=== PATIENT | male | born 1970 | race Two or more races ===

== ENCOUNTER 2021-12-08 13:06 | Emergency (ER) | payer OTHER ==
[~2021-12-08] VITALS: Ht 167.6 cm; Wt 127.0 kg
[2021-12-08] MEDS ORDERED: LORazepam 2MG/ML-1ML VIAL ONE (13:29)
[2021-12-08] MEDS ORDERED: LORazepam 2MG/ML-1ML VIAL IV ONE (13:29)
[2021-12-08 15:09] LABS: Basophils # (auto) 0 10 ^3/uL (0-0.2); Basophils % (auto) 0.2 % (0.0-2.0); Eosinophils # (auto) 0.1 10 ^3/uL (0-0.8); Eosinophils % (auto) 1.4 % (0.0-7.0); Hematocrit 37.1 % (41.0-53.0); Hemoglobin 12.3 g/dL (13.5-17.5); Lymphocytes # (auto) 2.1 10 ^3/uL (0.4-5.4); Lymphocytes % (auto) 22.6 % (10.0-50.0); Mean Corpuscular Hemoglobin 32.1 pg (28.0-32.0); Mean Corpuscular Hgb Conc. 33.2 g/dL (32.0-36.0); Mean Corpuscular Volume 96.8 fL (80.0-100.0); Monocytes # (auto) 0.6 10 ^3/uL (0-1.3); Monocytes % (auto) 6.6 % (0.0-12.0); Neutrophils # (auto) 6.5 10 ^3/uL (1.6-8.6); Neutrophils % (auto) 69.2 % (37.0-80.0); Nucleated Red Blood Cells % 0.1 %; Red Blood Cells 3.83 10^6/uL (4.5-5.90); Red Cell Distribution Width 14.6 % (11.8-14.3); White Blood Cell 9.4 10^3/uL (4.4-10.8)
[2021-12-08 15:20] LABS: Alanine Aminotransferase 25 U/L (16-61); Albumin 3.3 g/dL (3.4-5.0); Anion Gap 10 (5-15); Aspartate Aminotransferase 23 U/L (15-37); BUN/Creatinine Ratio 13.3; Blood Urea Nitrogen 16 mg/dL (7-18); Calcium 8.7 mg/dL (8.5-10.1); Carbon Dioxide 16 mmol/L (21-32); Chloride 115 mmol/L (98-107); GFR African American 82 mL/min; GFR Non-African American 68 mL/min; Glucose 96 mg/dL (74-106); Potassium 3.7 mmol/L (3.5-5.1); Sodium 141 mmol/L (136-145)
[2021-12-08 15:23] LABS: Alkaline Phosphatase 96 U/L (45-117); Bilirubin, Total 0.5 mg/dL (0.2-1.0); Total Protein 7.1 g/dL (6.4-8.2)
[2021-12-08] MEDS ORDERED: HYDROcodone-ACET 5/325MG TAB PO ONE (16:00)
[2021-12-08 17:45] VITALS: BP 131/79
[2021-12-08] MEDS ORDERED: LEVE500T32 PO (17:46)
== END 2021-12-08 17:58 | disposition home or self-care (01) ==
LOC: ER 13:06 → EDSEX 13:06 → ER 17:58
DX: R56.9 Unspecified convulsions (principal); I50.9 Heart failure, unspecified; I25.2 Old myocardial infarction; Z88.6 Allergy status to analgesic agent; Z88.8 Allergy status to other drugs, medicaments and biological substances
CPT/HCPCS: 36415; 70450; 71045; 72125; 80053; 85025; 93005; 96365; 96366; 96375; 99285; J1953; J2060; J7060

== ENCOUNTER 2021-12-08 23:43 | Inpatient (IN) | payer OTHER ==
[~2021-12-08] VITALS: Ht 167.6 cm; Wt 103.4 kg
[~2021-12-08 23:43] MED LIST: LEVE500T32 PO
[2021-12-09] MEDS: LORazepam 2MG/ML-1ML VIAL IV PRN ×4 (02:38→21:57)
[2021-12-09] MEDS ORDERED: HEPARIN SODIUM (PORCINE) 5000 UNITS/ML 1ML VIAL IV ONE (03:00)
[2021-12-09] MEDS ORDERED: ONDANSETRON HCL 4 MG/2 ML VIAL IV PRN (03:00)
[2021-12-09 03:40] LABS: Basophils # (auto) 0.1 10 ^3/uL (0-0.2); Basophils % (auto) 1.2 % (0.0-2.0); Eosinophils # (auto) 0.2 10 ^3/uL (0-0.8); Eosinophils % (auto) 3.2 % (0.0-7.0); Hematocrit 33.6 % (41.0-53.0); Hemoglobin 11.5 g/dL (13.5-17.5); Lymphocytes # (auto) 2.1 10 ^3/uL (0.4-5.4); Lymphocytes % (auto) 28.8 % (10.0-50.0); Mean Corpuscular Hemoglobin 32.4 pg (28.0-32.0); Mean Corpuscular Hgb Conc. 34.3 g/dL (32.0-36.0); Mean Corpuscular Volume 94.5 fL (80.0-100.0); Monocytes # (auto) 0.5 10 ^3/uL (0-1.3); Monocytes % (auto) 6.6 % (0.0-12.0); Neutrophils # (auto) 4.4 10 ^3/uL (1.6-8.6); Neutrophils % (auto) 60.2 % (37.0-80.0); Nucleated Red Blood Cells % 0.1 %; Red Blood Cells 3.55 10^6/uL (4.5-5.90); Red Cell Distribution Width 14.8 % (11.8-14.3); White Blood Cell 7.2 10^3/uL (4.4-10.8)
[2021-12-09 03:53] LABS: Albumin 3.2 g/dL (3.4-5.0); BUN/Creatinine Ratio 13.9; Calcium 8.6 mg/dL (8.5-10.1); Potassium 3.4 mmol/L (3.5-5.1)
[2021-12-09 03:56] LABS: Bilirubin, Total 0.4 mg/dL (0.2-1.0); Total Protein 6.7 g/dL (6.4-8.2)
[2021-12-09] MEDS ORDERED: levETIRAcetam 500 MG/5ML INJ IV ONE (03:57)
[2021-12-09 05:45] VITALS: BP 129/80
[2021-12-09 08:40] VITALS: BP 116/80
[2021-12-09 13:00] VITALS: BP 150/90
[2021-12-09 17:00] VITALS: BP 138/93
[2021-12-09] MEDS: buPROPion HCL 75 MG TAB PO SCH (18:31)
[2021-12-09 22:00] VITALS: BP 138/88
[2021-12-09] MEDS ORDERED: SODIUM CHLOR 0.9% PF (SALINE LOCK) 10ML VIAL/SYR IV ONE (23:45)
[2021-12-10] MEDS: LORazepam 2MG/ML-1ML VIAL IV PRN ×3 (00:28→13:27)
[2021-12-10 05:00] VITALS: BP 129/88
[2021-12-10] MEDS: buPROPion HCL 75 MG TAB PO SCH ×2 (06:14→18:28)
[2021-12-10 08:00] VITALS: BP 132/81
[2021-12-10 08:38] VITALS: BP 132/81
[2021-12-10 12:30] VITALS: BP 137/82
[2021-12-10] MEDS: HYDROcodone-ACET 5/325MG TAB PO PRN (14:24)
[2021-12-10 17:08] VITALS: BP 118/74
[2021-12-10] MEDS ORDERED: KETOROLAC TROMETH 30 MG/ML 1ML VIAL IV ONE (18:00)
[2021-12-11] MEDS: LORazepam 2MG/ML-1ML VIAL IV PRN ×6 (00:23→22:06)
[2021-12-11] MEDS: buPROPion HCL 75 MG TAB PO SCH ×2 (06:13→18:28)
[2021-12-11 09:00] VITALS: BP 129/83
[2021-12-11 13:00] VITALS: BP 131/94
[2021-12-11 17:00] VITALS: BP 129/88
[2021-12-11 22:00] VITALS: BP 132/95
[2021-12-11] MEDS ORDERED: HALOPERIDOL LACTATE 5 MG/ML INJ VIAL IM PRN (22:45)
[2021-12-12] MEDS: LORazepam 2MG/ML-1ML VIAL IV PRN (00:56)
[2021-12-12] MEDS: HYDROcodone-ACET 5/325MG TAB PO PRN (02:32)
[2021-12-12 05:00] VITALS: BP 152/100
[2021-12-12] MEDS: buPROPion HCL 75 MG TAB PO SCH ×2 (07:03→18:44)
[2021-12-12] MEDS ORDERED: diphenhdrAMINE HCL 25 MG CAP PO ONE (23:30)
== END 2021-12-12 23:20 | disposition left against medical advice (07) | DRG 101 ==
LOC: ER 23:43 → TELE 12-09 03:05 → TELE-EAST 12-09 05:10
PROVIDERS: ADMIT Internal Medicine; ATTEND Family Medicine
DX: G40.401 Other generalized epilepsy and epileptic syndromes, not intractable, with status epilepticus (principal); F09 Unspecified mental disorder due to known physiological condition; F43.10 Post-traumatic stress disorder, unspecified; G25.81 Restless legs syndrome; F32.A Depression, unspecified; Z53.21 Procedure and treatment not carried out due to patient leaving prior to being seen by health care provider; Z20.822 Contact with and (suspected) exposure to COVID-19; Z79.899 Other long term (current) drug therapy; Z87.820 Personal history of traumatic brain injury; Z98.2 Presence of cerebrospinal fluid drainage device; Z88.5 Allergy status to narcotic agent; Z88.8 Allergy status to other drugs, medicaments and biological substances; Z91.013 Allergy to seafood
CPT/HCPCS: 36415; 80053; 85025; 87081; 95819; 96365; 96375; G0378; J1885; J7060

== ENCOUNTER 2021-12-13 00:29 | Emergency (ER) | payer OTHER ==
[~2021-12-13] VITALS: Ht 167.6 cm; Wt 81.6 kg
[2021-12-13 01:00] VITALS: BP 151/98
[2021-12-13] MEDS ORDERED: levETIRAcetam 500 MG/5ML INJ IV ONE (01:31)
[2021-12-15] MEDS ORDERED: AMLO-496 PO ×2 (10:05→11:17)
[2021-12-15] MEDS ORDERED: LEVE500T32 PO (11:17)
[2021-12-15] MEDS ORDERED: KEP500T PO ×2 (12:14→12:41)
== END 2021-12-13 02:54 | disposition home or self-care (01) ==
LOC: ER 00:31
DX: G40.909 Epilepsy, unspecified, not intractable, without status epilepticus (principal); R41.82 Altered mental status, unspecified
CPT/HCPCS: 96365; 99284; J1953; J7030; J7060

== ENCOUNTER 2021-12-13 15:51 | Inpatient (IN) | payer OTHER ==
[~2021-12-13] VITALS: Ht 167.6 cm; Wt 103.4 kg
[2021-12-13] MEDS ORDERED: SODIUM CHLORIDE 0.9% 1,000 ML IV ONE ×2 (16:00)
[2021-12-13 16:22] LABS: Basophils # (auto) 0 10 ^3/uL (0-0.2); Basophils % (auto) 0.4 % (0.0-2.0); Eosinophils # (auto) 0.1 10 ^3/uL (0-0.8); Eosinophils % (auto) 1.2 % (0.0-7.0); Hematocrit 34.6 % (41.0-53.0); Hemoglobin 11.6 g/dL (13.5-17.5); Lymphocytes # (auto) 2.1 10 ^3/uL (0.4-5.4); Lymphocytes % (auto) 27.1 % (10.0-50.0); Mean Corpuscular Hemoglobin 32.1 pg (28.0-32.0); Mean Corpuscular Hgb Conc. 33.5 g/dL (32.0-36.0); Monocytes # (auto) 0.6 10 ^3/uL (0-1.3); Monocytes % (auto) 8.5 % (0.0-12.0); Neutrophils # (auto) 4.8 10 ^3/uL (1.6-8.6); Neutrophils % (auto) 62.8 % (37.0-80.0); Nucleated Red Blood Cells % 0.1 %; Red Blood Cells 3.61 10^6/uL (4.5-5.90); Red Cell Distribution Width 14.6 % (11.8-14.3); White Blood Cell 7.6 10^3/uL (4.4-10.8)
[2021-12-13 16:40] LABS: Albumin 3.5 g/dL (3.4-5.0); Anion Gap 8 (5-15); Blood Urea Nitrogen 16 mg/dL (7-18); Calcium 8.7 mg/dL (8.5-10.1); Carbon Dioxide 21 mmol/L (21-32); Chloride 114 mmol/L (98-107); Glucose 91 mg/dL (74-106); Sodium 143 mmol/L (136-145)
[2021-12-13 16:42] LABS: Alanine Aminotransferase 26 U/L (16-61); Aspartate Aminotransferase 22 U/L (15-37); BUN/Creatinine Ratio 13.7; GFR African American 85 mL/min; GFR Non-African American 70 mL/min
[2021-12-13 16:44] LABS: Alkaline Phosphatase 91 U/L (45-117); Bilirubin, Total 0.7 mg/dL (0.2-1.0); Total Protein 7.3 g/dL (6.4-8.2)
[2021-12-13] MEDS ORDERED: LORazepam 2MG/ML-1ML VIAL IV ONE (18:00)
[2021-12-13] MEDS ORDERED: LORazepam 2MG/ML-1ML VIAL IV PRN (18:15)
[2021-12-13] MEDS ORDERED: NITROGLYCERIN 0.4 MG SL TAB SL PRN (18:15)
[2021-12-13 18:46] LABS: Urine Bacteria NONE SEEN /hpf (None Seen); Urine Blood Negative /uL (Negative); Urine Hyaline Cast FEW /lpf (0 - 2); Urine Mucus FEW (None Seen); Urine WBC 4 /hpf (0 - 3)
[2021-12-13] MEDS ORDERED: DOCUSATE SOD 100 MG CAP PO PRN (19:30)
[2021-12-13] MEDS ORDERED: SODIUM CHLORIDE 0.9% 1,000 ML IV SCH (19:30)
[2021-12-13] MEDS ORDERED: LACTULOSE 20Gm/30ML SOLN PO PRN (19:30)
[2021-12-13] MEDS ORDERED: HYDROcodone-ACET 5/325MG TAB PO PRN (19:30)
[2021-12-13] MEDS ORDERED: FAMOTIDINE (10MG/ML) 2ML VL IV ONE (19:30)
[2021-12-13] MEDS ORDERED: HYDROcodone-ACET 5/325MG TAB PO ONE (19:30)
[2021-12-13] MEDS ORDERED: MORPHINE SULFATE INJECTION 2 MG/ML SYRG IV PRN (19:30)
[2021-12-13] MEDS ORDERED: IPRATROPIUM BROM 0.5 MG/2.5ML INH SOL ONE (19:30)
[2021-12-13] MEDS ORDERED: IPRATROPIUM BROM 0.5 MG/2.5ML INH SOL NEB ONE (19:30)
[2021-12-13] MEDS ORDERED: ONDANSETRON HCL 4 MG/2 ML VIAL IV PRN (19:30)
[2021-12-13] MEDS ORDERED: ACETAMINOPHEN 325 MG TAB PO PRN (19:30)
[2021-12-13] MEDS ORDERED: hydrALAZINE HCL 20 MG/ML VL IV PRN (19:30)
[2021-12-13 20:08] LABS: Magnesium 1.9 mg/dL (1.6-2.6); Phosphorus 1.8 mg/dL (2.5-4.90)
[2021-12-13 20:21] LABS: INR 1.09 (0.9-1.15); Partial Thromboplastin Time 27.3 sec (23.6-33.0)
[2021-12-13 21:00] VITALS: BP 132/108
[2021-12-13] MEDS: SODIUM CHLORIDE 0.9% 1,000 ML IV SCH (21:00)
[2021-12-13] MEDS ORDERED: ATORVASTATIN 20 MG TAB PO SCH (22:00)
[2021-12-13] MEDS: IPRATROPIUM BROM 0.5 MG/2.5ML INH SOL NEB SCH (22:56)
[2021-12-14] MEDS: IPRATROPIUM BROM 0.5 MG/2.5ML INH SOL NEB SCH (02:26)
[2021-12-14] MEDS: MORPHINE SULFATE INJECTION 2 MG/ML SYRG IV PRN ×2 (04:11→20:34)
[2021-12-14 05:35] LABS: Basophils # (auto) 0 10 ^3/uL (0-0.2); Basophils % (auto) 0.5 % (0.0-2.0); Eosinophils # (auto) 0.1 10 ^3/uL (0-0.8); Eosinophils % (auto) 1.9 % (0.0-7.0); Hematocrit 33.8 % (41.0-53.0); Hemoglobin 11.7 g/dL (13.5-17.5); Lymphocytes # (auto) 1.7 10 ^3/uL (0.4-5.4); Lymphocytes % (auto) 23.4 % (10.0-50.0); Mean Corpuscular Hemoglobin 32.6 pg (28.0-32.0); Mean Corpuscular Hgb Conc. 34.7 g/dL (32.0-36.0); Mean Corpuscular Volume 93.9 fL (80.0-100.0); Monocytes # (auto) 0.6 10 ^3/uL (0-1.3); Monocytes % (auto) 8.2 % (0.0-12.0); Neutrophils # (auto) 4.8 10 ^3/uL (1.6-8.6); Red Cell Distribution Width 14.7 % (11.8-14.3); White Blood Cell 7.3 10^3/uL (4.4-10.8)
[2021-12-14] MEDS ORDERED: IPRATROPIUM BROM 0.5 MG/2.5ML INH SOL NEB PRN (05:45)
[2021-12-14 05:47] LABS: Albumin 3.3 g/dL (3.4-5.0); Calcium 8.8 mg/dL (8.5-10.1); Magnesium 1.9 mg/dL (1.6-2.6); Potassium 3.3 mmol/L (3.5-5.1); Uric Acid 6.9 mg/dL (3.5-7.2)
[2021-12-14 05:48] LABS: INR 1.14 (0.9-1.15)
[2021-12-14 05:51] LABS: Bilirubin, Total 0.8 mg/dL (0.2-1.0); CRP High Sensitivity 0.93 mg/dL (< 0.3); Phosphorus 2.6 mg/dL (2.5-4.90); Total Protein 6.9 g/dL (6.4-8.2)
[2021-12-14 05:54] LABS: Prolactin 35.63 ng/mL (2.8-29.2)
[2021-12-14] MEDS: HALOPERIDOL LACTATE 5 MG/ML INJ VIAL IM PRN ×2 (05:54→20:27)
[2021-12-14 05:58] LABS: Alcohol, Urine < 3.0 mg/dL (0-10); Amphetamine Screen, Urine NEGATIVE (NEGATIVE); Barbiturate Scree,Urine NEGATIVE (NEGATIVE); Benzodiazephine Screen, Urine NEGATIVE (NEGATIVE); Cannabinoid Screen, Urine NEGATIVE (NEGATIVE); Cocaine Screen, Urine NEGATIVE (NEGATIVE); Opiate Scree,Urine NEGATIVE (NEGATIVE); Phencyclidine Screen, Urine NEGATIVE (NEGATIVE); Protein, Urine 25.5 mg/dL (0.0-11.9)
[2021-12-14 06:03] LABS: Urine Bacteria NONE SEEN /hpf (None Seen); Urine Blood Negative /uL (Negative); Urine Mucus FEW (None Seen); Urine Specific Gravity 1.026 (1.001-1.035); Urine WBC 2 /hpf (0 - 3)
[2021-12-14 06:30] LABS: BUN/Creatinine Ratio 13.1
[2021-12-14] MEDS ORDERED: buPROPion HCL 75 MG TAB PO SCH (07:00)
[2021-12-14 09:32] VITALS: BP 140/90
[2021-12-14 13:23] VITALS: BP 141/95
[2021-12-14] MEDS: FAMOTIDINE (10MG/ML) 2ML VL IV SCH (13:30)
[2021-12-14] MEDS: ASPirin 81 mg TAB PO SCH (13:30)
[2021-12-14] MEDS: ENOXAPARIN SOD 40 MG/0.4 ML SYRINGE SC SCH (13:30)
[2021-12-14] MEDS ORDERED: POTASSIUM CHL 20 Meq TABLET PO ONE ×2 (14:30→19:00)
[2021-12-14] MEDS: SODIUM CHLORIDE 0.9% 1,000 ML IV SCH (15:30)
[2021-12-14 16:30] VITALS: BP 145/94
[2021-12-14 22:00] VITALS: BP 134/91
[2021-12-15 05:00] VITALS: BP 131/90
[2021-12-15 06:38] LABS: Magnesium 2.5 mg/dL (1.6-2.6); Potassium 3.4 mmol/L (3.5-5.1)
[2021-12-15 08:06] VITALS: BP 150/91
[2021-12-15] MEDS: ENOXAPARIN SOD 40 MG/0.4 ML SYRINGE SC SCH (10:00)
[2021-12-15] MEDS: FAMOTIDINE (10MG/ML) 2ML VL IV SCH (10:00)
[2021-12-15] MEDS: ASPirin 81 mg TAB PO SCH (10:00)
[2021-12-15] MEDS ORDERED: buPROPion HCL 75 MG TAB PO SCH (10:00)
[2021-12-15] MEDS ORDERED: PROP20TA73 PO (10:05)
[2021-12-15] MEDS ORDERED: AMLO-496 PO ×2 (10:05→11:17)
[2021-12-15] MEDS ORDERED: DICY20TA PO (10:27)
[2021-12-15] MEDS ORDERED: ROPI1TAB4 PO (10:27)
[2021-12-15] MEDS ORDERED: POTASSIUM CHL 20 Meq TABLET PO ONE (11:15)
[2021-12-15] MEDS ORDERED: LEVE500T32 PO (11:17)
[2021-12-15 12:10] VITALS: BP 144/85
[2021-12-15] MEDS ORDERED: KEP500T PO ×2 (12:14→12:41)
[2021-12-15 12:31] VITALS: BP 132/70
== END 2021-12-15 13:54 | disposition left against medical advice (07) | DRG 100 ==
LOC: ER 15:51 → TELE 18:06 → TELE-CENTR 12-14 08:43
PROVIDERS: ADMIT Hospitalist; ATTEND Internal Medicine
DX: G40.401 Other generalized epilepsy and epileptic syndromes, not intractable, with status epilepticus (principal); N18.6 End stage renal disease; I12.0 Hypertensive chronic kidney disease with stage 5 chronic kidney disease or end stage renal disease; E87.6 Hypokalemia; E78.5 Hyperlipidemia, unspecified; E66.01 Morbid (severe) obesity due to excess calories; E11.22 Type 2 diabetes mellitus with diabetic chronic kidney disease; F32.9 Major depressive disorder, single episode, unspecified; F09 Unspecified mental disorder due to known physiological condition; F43.10 Post-traumatic stress disorder, unspecified; Z20.822 Contact with and (suspected) exposure to COVID-19; G20 Parkinson's disease; G25.81 Restless legs syndrome; I48.91 Unspecified atrial fibrillation; F32.A Depression, unspecified; Z98.2 Presence of cerebrospinal fluid drainage device; Z91.19 Patient's noncompliance with other medical treatment and regimen; Z82.49 Family history of ischemic heart disease and other diseases of the circulatory system; Z79.899 Other long term (current) drug therapy; Z88.8 Allergy status to other drugs, medicaments and biological substances; Z91.013 Allergy to seafood; Z53.29 Procedure and treatment not carried out because of patient's decision for other reasons
CPT/HCPCS: 36415; 70450; 71045; 80053; 80061; 80307; 81001; 82542; 82550; 82728; 83036; 83615; 83690; 83735; 83880; 84100; 84132; 84146; 84156; 84443; 84484; 84550; 85025; 85379; 85610; 85652; 85730; 86141; 87040; 87086; 93005; 94640; 96361; 96365; G0378; J3490; J7060

== ENCOUNTER 2021-12-18 01:57 | Emergency (ER) | payer OTHER ==
[~2021-12-18] VITALS: Ht 167.6 cm; Wt 81.6 kg
[~2021-12-18 01:57] MED LIST changes: +AMLO-496 PO; +DICY20TA PO; +KEP500T PO; -LEVE500T32 PO; +PROP20TA73 PO; +ROPI1TAB4 PO
[2021-12-18] MEDS ORDERED: LORazepam 2MG/ML-1ML VIAL ONE (02:46)
[2021-12-18 02:58] LABS: Basophils # (auto) 0.1 10 ^3/uL (0-0.2); Eosinophils # (auto) 0.1 10 ^3/uL (0-0.8); Hematocrit 33.5 % (41.0-53.0); Hemoglobin 11.3 g/dL (13.5-17.5); Lymphocytes # (auto) 1.7 10 ^3/uL (0.4-5.4); Lymphocytes % (auto) 20.3 % (10.0-50.0); Mean Corpuscular Hgb Conc. 33.8 g/dL (32.0-36.0); Mean Corpuscular Volume 94.5 fL (80.0-100.0); Monocytes # (auto) 0.6 10 ^3/uL (0-1.3); Monocytes % (auto) 7.6 % (0.0-12.0); Neutrophils # (auto) 5.7 10 ^3/uL (1.6-8.6); Neutrophils % (auto) 70.1 % (37.0-80.0); Red Blood Cells 3.54 10^6/uL (4.5-5.90); Red Cell Distribution Width 14.7 % (11.8-14.3); White Blood Cell 8.2 10^3/uL (4.4-10.8)
[2021-12-18] MEDS ORDERED: LORazepam 2MG/ML-1ML VIAL IV ONE (03:00)
[2021-12-18 03:22] LABS: Albumin 3.5 g/dL (3.4-5.0); BUN/Creatinine Ratio 6.9; Calcium 9.1 mg/dL (8.5-10.1)
[2021-12-18 03:25] LABS: Bilirubin, Total 0.4 mg/dL (0.2-1.0); Total Protein 7.1 g/dL (6.4-8.2)
[2021-12-18 03:28] LABS: Potassium 2.9 mmol/L (3.5-5.1)
[2021-12-18] MEDS ORDERED: POTASSIUM CHL 20 Meq TABLET PO ONE (04:45)
[2021-12-18 10:23] LABS: Urine Bacteria NONE SEEN /hpf (None Seen); Urine Blood Negative /uL (Negative); Urine Budding Yeast MODERATE /hpf (None Seen); Urine Hyaline Cast MOD /lpf (0 - 2); Urine Mucus FEW (None Seen); Urine Specific Gravity 1.015 (1.001-1.035); Urine WBC 3 /hpf (0 - 3)
[2021-12-18 16:16] VITALS: BP 135/84
== END 2021-12-18 16:51 | disposition home or self-care (01) ==
LOC: ER 01:57
DX: G40.909 Epilepsy, unspecified, not intractable, without status epilepticus (principal); R41.82 Altered mental status, unspecified; E87.6 Hypokalemia; E11.21 Type 2 diabetes mellitus with diabetic nephropathy; E11.22 Type 2 diabetes mellitus with diabetic chronic kidney disease; I12.0 Hypertensive chronic kidney disease with stage 5 chronic kidney disease or end stage renal disease; N18.6 End stage renal disease
CPT/HCPCS: 36415; 70450; 80053; 81001; 85025; 93005; 96365; 96375; 99285; J1953; J2060; J7060

== ENCOUNTER 2022-02-07 16:03 | Inpatient (IN) | payer OTHER ==
[~2022-02-07] VITALS: Ht 167.6 cm; Wt 98.0 kg
[2022-02-07 20:02] LABS: Basophils # (auto) 0 10 ^3/uL (0-0.2); Basophils % (auto) 0.5 % (0.0-2.0); Eosinophils # (auto) 0.1 10 ^3/uL (0-0.8); Eosinophils % (auto) 1.2 % (0.0-7.0); Hematocrit 37.9 % (41.0-53.0); Hemoglobin 13.1 g/dL (13.5-17.5); Lymphocytes # (auto) 1.5 10 ^3/uL (0.4-5.4); Lymphocytes % (auto) 23.7 % (10.0-50.0); Mean Corpuscular Hemoglobin 32.8 pg (28.0-32.0); Mean Corpuscular Hgb Conc. 34.5 g/dL (32.0-36.0); Mean Corpuscular Volume 95.2 fL (80.0-100.0); Monocytes # (auto) 1.1 10 ^3/uL (0-1.3); Monocytes % (auto) 17.4 % (0.0-12.0); Neutrophils # (auto) 3.5 10 ^3/uL (1.6-8.6); Neutrophils % (auto) 57.2 % (37.0-80.0); Nucleated Red Blood Cells % 0.1 %; Red Blood Cells 3.98 10^6/uL (4.5-5.90); Red Cell Distribution Width 13.4 % (11.8-14.3); White Blood Cell 6.2 10^3/uL (4.4-10.8)
[2022-02-07 20:07] LABS: Urine Bacteria NONE SEEN /hpf (None Seen); Urine Blood Negative /uL (Negative); Urine Specific Gravity 1.009 (1.001-1.035); Urine WBC <1 /hpf (0 - 3)
[2022-02-07 20:22] LABS: Albumin 3.1 g/dL (3.4-5.0); Calcium 8.4 mg/dL (8.5-10.1); Potassium 3.7 mmol/L (3.5-5.1)
[2022-02-07 20:23] LABS: Alcohol, Urine < 3.0 mg/dL (0-10); Amphetamine Screen, Urine NEGATIVE (NEGATIVE); Barbiturate Scree,Urine NEGATIVE (NEGATIVE); Benzodiazephine Screen, Urine NEGATIVE (NEGATIVE); Cannabinoid Screen, Urine NEGATIVE (NEGATIVE); Cocaine Screen, Urine NEGATIVE (NEGATIVE); Opiate Scree,Urine NEGATIVE (NEGATIVE); Phencyclidine Screen, Urine NEGATIVE (NEGATIVE)
[2022-02-07 20:26] LABS: BUN/Creatinine Ratio 9.5; Bilirubin, Total 0.4 mg/dL (0.2-1.0); Total Protein 7.2 g/dL (6.4-8.2)
[2022-02-07] MEDS ORDERED: ONDANSETRON HCL 4 MG/2 ML VIAL IV PRN (21:15)
[2022-02-07] MEDS ORDERED: ACETAMINOPHEN 325 MG TAB PO PRN (21:15)
[2022-02-07] MEDS ORDERED: hydrALAZINE HCL 20 MG/ML VL IV PRN (21:15)
[2022-02-08 02:46] VITALS: BP 134/74
[2022-02-08 05:00] VITALS: BP 158/95
[2022-02-08 06:02] LABS: Potassium 4.1 mmol/L (3.5-5.1)
[2022-02-08 06:04] LABS: Basophils # (auto) 0 10 ^3/uL (0-0.2); Basophils % (auto) 0.5 % (0.0-2.0); Eosinophils # (auto) 0.2 10 ^3/uL (0-0.8); Eosinophils % (auto) 2.9 % (0.0-7.0); Hematocrit 40.6 % (41.0-53.0); Hemoglobin 13.9 g/dL (13.5-17.5); Lymphocytes # (auto) 1.4 10 ^3/uL (0.4-5.4); Lymphocytes % (auto) 25.6 % (10.0-50.0); Mean Corpuscular Hemoglobin 32.6 pg (28.0-32.0); Mean Corpuscular Hgb Conc. 34.3 g/dL (32.0-36.0); Monocytes # (auto) 0.9 10 ^3/uL (0-1.3); Nucleated Red Blood Cells % 0.1 %; Red Blood Cells 4.27 10^6/uL (4.5-5.90); Red Cell Distribution Width 13.5 % (11.8-14.3); White Blood Cell 5.4 10^3/uL (4.4-10.8)
[2022-02-08 06:14] LABS: Albumin 3.2 g/dL (3.4-5.0); BUN/Creatinine Ratio 8.9; Bilirubin, Total 0.4 mg/dL (0.2-1.0); Calcium 8.9 mg/dL (8.5-10.1); Total Protein 7.8 g/dL (6.4-8.2)
[2022-02-08] MEDS: amLODIPine BESYLATE 5 MG TAB PO SCH (10:20)
[2022-02-08] MEDS: PANTOPRAZOLE 40 MG TAB PO SCH (10:21)
[2022-02-08] MEDS ORDERED: PROPRANOLOL HCL 20 MG TAB PO ONE (12:30)
[2022-02-08] MEDS ORDERED: HYDROcodone-ACET 5/325MG TAB PO PRN (12:30)
[2022-02-08 13:00] VITALS: BP 142/88
[2022-02-08 17:00] VITALS: BP 145/92
[2022-02-08] MEDS: LORazepam 2MG/ML-1ML VIAL IV PRN ×2 (20:38→21:39)
[2022-02-08] MEDS: PROPRANOLOL HCL 20 MG TAB PO SCH (21:45)
[2022-02-09] VITALS (7 sets, daily range): BP systolic 119–138; BP diastolic 78–98
[2022-02-09] MEDS: LORazepam 2MG/ML-1ML VIAL IV PRN ×4 (06:17→18:46)
[2022-02-09] MEDS: buPROPion HCL 75 MG TAB PO SCH ×2 (06:17→18:54)
[2022-02-09] MEDS: PANTOPRAZOLE 40 MG TAB PO SCH (10:43)
[2022-02-09] MEDS: amLODIPine BESYLATE 5 MG TAB PO SCH (10:45)
[2022-02-09] MEDS: PROPRANOLOL HCL 20 MG TAB PO SCH ×2 (10:47→21:35)
[2022-02-10] MEDS: LORazepam 2MG/ML-1ML VIAL IV PRN (02:07)
[2022-02-10 05:00] VITALS: BP 121/86
[2022-02-10] MEDS: buPROPion HCL 75 MG TAB PO SCH (06:33)
[2022-02-10 08:00] VITALS: BP 113/76
[2022-02-10] MEDS: amLODIPine BESYLATE 5 MG TAB PO SCH (09:20)
[2022-02-10] MEDS: PANTOPRAZOLE 40 MG TAB PO SCH (09:20)
[2022-02-10] MEDS: PROPRANOLOL HCL 20 MG TAB PO SCH (09:21)
== END 2022-02-10 14:10 | disposition home or self-care (01) | DRG 101 ==
LOC: ER 16:03 → OVERFLOW 21:03 → WEST WING 23:23 → TELE-WESTW 02-08 19:51
PROVIDERS: ADMIT Nurse Practitioner; ATTEND Internal Medicine
DX: G40.401 Other generalized epilepsy and epileptic syndromes, not intractable, with status epilepticus (principal); R51.9 Headache, unspecified; F43.10 Post-traumatic stress disorder, unspecified; E66.01 Morbid (severe) obesity due to excess calories; F03.90 Unspecified dementia, unspecified severity, without behavioral disturbance, psychotic disturbance, mood disturbance, and anxiety; G25.81 Restless legs syndrome; I48.91 Unspecified atrial fibrillation; R32 Unspecified urinary incontinence; Z20.822 Contact with and (suspected) exposure to COVID-19; Z91.19 Patient's noncompliance with other medical treatment and regimen; Z79.899 Other long term (current) drug therapy; Z82.49 Family history of ischemic heart disease and other diseases of the circulatory system; Z87.820 Personal history of traumatic brain injury; Z68.34 Body mass index [BMI] 34.0-34.9, adult; I25.2 Old myocardial infarction; Z91.013 Allergy to seafood; Z88.8 Allergy status to other drugs, medicaments and biological substances; I10 Essential (primary) hypertension
CPT/HCPCS: 36415; 70450; 72040; 80053; 80307; 81001; 82542; 82550; 84146; 85025; 96365; G0378; J7060

== ENCOUNTER 2022-02-10 23:00 | Inpatient (IN) | payer OTHER ==
[~2022-02-10] VITALS: Ht 177.8 cm
[2022-02-11] VITALS (11 sets, daily range): BP systolic 87–145; BP diastolic 51–91
[2022-02-11 00:13] LABS: Basophils # (auto) 0 10 ^3/uL (0-0.2); Basophils % (auto) 0.3 % (0.0-2.0); Eosinophils # (auto) 0.1 10 ^3/uL (0-0.8); Eosinophils % (auto) 1.4 % (0.0-7.0); Hematocrit 41.9 % (41.0-53.0); Hemoglobin 14.3 g/dL (13.5-17.5); Lymphocytes % (auto) 22.9 % (10.0-50.0); Mean Corpuscular Hemoglobin 31.8 pg (28.0-32.0); Mean Corpuscular Volume 93.4 fL (80.0-100.0); Monocytes # (auto) 0.8 10 ^3/uL (0-1.3); Monocytes % (auto) 9.4 % (0.0-12.0); Neutrophils # (auto) 5.7 10 ^3/uL (1.6-8.6); Nucleated Red Blood Cells % 0.2 %; Red Blood Cells 4.49 10^6/uL (4.5-5.90); Red Cell Distribution Width 13.5 % (11.8-14.3); White Blood Cell 8.6 10^3/uL (4.4-10.8)
[2022-02-11 00:47] LABS: Alanine Aminotransferase 20 U/L (16-61); Albumin 3.6 g/dL (3.4-5.0); Anion Gap 13 (5-15); Aspartate Aminotransferase 13 U/L (15-37); BUN/Creatinine Ratio 13.9; Blood Urea Nitrogen 23 mg/dL (7-18); Calcium 8.9 mg/dL (8.5-10.1); Carbon Dioxide 19 mmol/L (21-32); Chloride 107 mmol/L (98-107); GFR African American 57 mL/min; GFR Non-African American 47 mL/min; Glucose 103 mg/dL (74-106); Sodium 139 mmol/L (136-145)
[2022-02-11 00:50] LABS: Alkaline Phosphatase 126 U/L (45-117); Bilirubin, Total 0.4 mg/dL (0.2-1.0); Total Protein 7.6 g/dL (6.4-8.2)
[2022-02-11 01:49] LABS: Urine Bacteria NONE SEEN /hpf (None Seen); Urine Blood Negative /uL (Negative); Urine Mucus FEW (None Seen); Urine Specific Gravity 1.031 (1.001-1.035); Urine WBC 7 /hpf (0 - 3)
[2022-02-11] MEDS ORDERED: levETIRAcetam 500 MG/5ML INJ IV ONE (01:59)
[2022-02-11] MEDS ORDERED: ETOMIDATE (2MG/ML) 20ML VIAL IV ONE (02:12)
[2022-02-11] MEDS ORDERED: PROPOFOL 100 ML IV ONE (02:12)
[2022-02-11] MEDS ORDERED: MIDAZOLAM DRIP 50 mg/50mL 50 ML IV ONE (02:12)
[2022-02-11] MEDS ORDERED: ROCURONIUM 10MG/ML 10ML VIAL IV ONE (02:13)
[2022-02-11] MEDS ORDERED: PROPOFOL 10 MG/ML 20 ML IV ONE (02:45)
[2022-02-11] MEDS ORDERED: NITROGLYCERIN 0.4 MG SL TAB SL PRN (03:00)
[2022-02-11] MEDS: SODIUM CHLORIDE 0.9% 1,000 ML IV SCH (03:00)
[2022-02-11] MEDS ORDERED: ACETAMINOPHEN 650 MG RECT SUPP PR PRN (03:00)
[2022-02-11] MEDS ORDERED: MORPHINE SULFATE INJ 2 MG/ml SYRG IV PRN (03:00)
[2022-02-11] MEDS ORDERED: ONDANSETRON HCL 4 MG/2 ML VIAL IV PRN (03:00)
[2022-02-11] MEDS: MIDAZOLAM DRIP 50 mg/50mL 50 ML IV SCH (03:13)
[2022-02-11] MEDS: PROPOFOL 100 ML IV SCH (03:14)
[2022-02-11] MEDS ORDERED: DEXTROSE (50%) 50ML SYRG IV PRN (04:45)
[2022-02-11] MEDS: InsuLIN REG 1unit/0.01ml Soln (100units/ml) SC SCH ×2 (07:00→11:24)
[2022-02-11] MEDS: ACCU-CHEK COMFORT CURVE STRIP VI SCH ×2 (07:12→11:23)
[2022-02-11] MEDS: FAMOTIDINE (10MG/ML) 2ML VL IV SCH ×2 (10:22→22:22)
[2022-02-11] MEDS ORDERED: Jevity 1.2 Cal/Fiber 1 Liter GT SCH (14:00)
[2022-02-11] MEDS ORDERED: LORazepam 2MG/ML-1ML VIAL IV PRN (15:45)
[2022-02-12] VITALS (72 sets, daily range): BP systolic 103–173; BP diastolic 67–104
[2022-02-12] MEDS: SODIUM CHLORIDE 0.9% 1,000 ML IV SCH ×2 (02:00→12:53)
[2022-02-12] MEDS: PROPOFOL 100 ML IV SCH ×3 (03:15→18:00)
[2022-02-12] MEDS: MIDAZOLAM DRIP 50 mg/50mL 50 ML IV SCH ×4 (03:15→23:43)
[2022-02-12 07:54] LABS: Basophils # (auto) 0.1 10 ^3/uL (0-0.2); Basophils % (auto) 0.6 % (0.0-2.0); Eosinophils # (auto) 0.1 10 ^3/uL (0-0.8); Eosinophils % (auto) 1.2 % (0.0-7.0); Hemoglobin 12.9 g/dL (13.5-17.5); Lymphocytes # (auto) 2.1 10 ^3/uL (0.4-5.4); Lymphocytes % (auto) 25.1 % (10.0-50.0); Mean Corpuscular Hemoglobin 32.2 pg (28.0-32.0); Mean Corpuscular Volume 94.8 fL (80.0-100.0); Monocytes # (auto) 0.8 10 ^3/uL (0-1.3); Monocytes % (auto) 10.1 % (0.0-12.0); Neutrophils # (auto) 5.3 10 ^3/uL (1.6-8.6); Nucleated Red Blood Cells % 0.1 %; Red Blood Cells 4.01 10^6/uL (4.5-5.90); Red Cell Distribution Width 13.5 % (11.8-14.3); White Blood Cell 8.4 10^3/uL (4.4-10.8)
[2022-02-12 08:16] LABS: Calcium 8.3 mg/dL (8.5-10.1); Potassium 3.6 mmol/L (3.5-5.1)
[2022-02-12 08:17] LABS: INR 1.06 (0.9-1.15); Partial Thromboplastin Time 27.4 sec (23.6-33.0)
[2022-02-12 08:58] LABS: BUN/Creatinine Ratio 9.7; Bilirubin, Total 0.3 mg/dL (0.2-1.0); Total Protein 6.6 g/dL (6.4-8.2)
[2022-02-12] MEDS ORDERED: ENOXAPARIN SOD 40 MG/0.4 ML SYRINGE SC SCH (10:00)
[2022-02-12] MEDS: FAMOTIDINE (10MG/ML) 2ML VL IV SCH (10:01)
[2022-02-12] MEDS ORDERED: LIDOCAINE 1% (LOCAL ANESTH.) PF 5ml SDV ID ONE (11:30)
[2022-02-12] MEDS ORDERED: SODIUM CHLORIDE 0.9% 500 ML IV ONE (12:15)
[2022-02-12] MEDS: SODIUM CHLOR 0.9% PF (SALINE LOCK) 10ML VIAL/SYR IV SCH (22:12)
[2022-02-13] VITALS (84 sets, daily range): BP systolic 113–150; BP diastolic 67–98
[2022-02-13] MEDS: PROPOFOL 100 ML IV SCH ×3 (02:31→21:39)
[2022-02-13 03:48] LABS: Basophils # (auto) 0 10 ^3/uL (0-0.2); Basophils % (auto) 0.2 % (0.0-2.0); Eosinophils # (auto) 0.1 10 ^3/uL (0-0.8); Eosinophils % (auto) 1.1 % (0.0-7.0); Hematocrit 37.1 % (41.0-53.0); Hemoglobin 12.4 g/dL (13.5-17.5); Lymphocytes % (auto) 22.5 % (10.0-50.0); Mean Corpuscular Hemoglobin 31.8 pg (28.0-32.0); Mean Corpuscular Hgb Conc. 33.5 g/dL (32.0-36.0); Monocytes # (auto) 0.7 10 ^3/uL (0-1.3); Neutrophils % (auto) 68.2 % (37.0-80.0); Nucleated Red Blood Cells % 0.1 %; Red Blood Cells 3.91 10^6/uL (4.5-5.90); Red Cell Distribution Width 13.4 % (11.8-14.3); White Blood Cell 8.9 10^3/uL (4.4-10.8)
[2022-02-13 04:06] LABS: Calcium 8.4 mg/dL (8.5-10.1); Potassium 3.9 mmol/L (3.5-5.1)
[2022-02-13 04:08] LABS: BUN/Creatinine Ratio 9.9
[2022-02-13 04:11] LABS: Bilirubin, Total 0.3 mg/dL (0.2-1.0); Total Protein 6.7 g/dL (6.4-8.2)
[2022-02-13] MEDS: SODIUM CHLORIDE 0.9% 1,000 ML IV SCH (05:00)
[2022-02-13] MEDS: PANTOPRAZOLE 40 MG/10 ML VIAL INJ IV SCH (10:24)
[2022-02-13] MEDS: SODIUM CHLOR 0.9% PF (SALINE LOCK) 10ML VIAL/SYR IV SCH ×2 (10:24→21:38)
[2022-02-13] MEDS: HEPARIN SODIUM (PORCINE) 5000 UNITS/ML 1ML VIAL SC SCH ×2 (10:24→21:40)
[2022-02-13] MEDS: QUEtiapine FUMARATE 25 MG TAB PO SCH (21:38)
[2022-02-14] VITALS (67 sets, daily range): BP systolic 124–153; BP diastolic 78–100
[2022-02-14] MEDS: SODIUM CHLORIDE 0.9% 1,000 ML IV SCH ×2 (02:39→14:50)
[2022-02-14 04:37] LABS: Basophils # (auto) 0 10 ^3/uL (0-0.2); Basophils % (auto) 0.5 % (0.0-2.0); Eosinophils # (auto) 0.1 10 ^3/uL (0-0.8); Eosinophils % (auto) 1.2 % (0.0-7.0); Hematocrit 36.1 % (41.0-53.0); Hemoglobin 12.4 g/dL (13.5-17.5); Lymphocytes # (auto) 2.2 10 ^3/uL (0.4-5.4); Lymphocytes % (auto) 26.2 % (10.0-50.0); Mean Corpuscular Hemoglobin 32.9 pg (28.0-32.0); Mean Corpuscular Hgb Conc. 34.3 g/dL (32.0-36.0); Mean Corpuscular Volume 95.8 fL (80.0-100.0); Monocytes # (auto) 0.6 10 ^3/uL (0-1.3); Monocytes % (auto) 7.2 % (0.0-12.0); Neutrophils # (auto) 5.5 10 ^3/uL (1.6-8.6); Neutrophils % (auto) 64.9 % (37.0-80.0); Nucleated Red Blood Cells % 0.1 %; Red Blood Cells 3.77 10^6/uL (4.5-5.90); Red Cell Distribution Width 13.1 % (11.8-14.3); White Blood Cell 8.5 10^3/uL (4.4-10.8)
[2022-02-14 04:54] LABS: Albumin 2.7 g/dL (3.4-5.0); Calcium 8.1 mg/dL (8.5-10.1); Potassium 3.9 mmol/L (3.5-5.1)
[2022-02-14 04:57] LABS: BUN/Creatinine Ratio 10.1; Bilirubin, Total 0.4 mg/dL (0.2-1.0); Total Protein 6.7 g/dL (6.4-8.2)
[2022-02-14] MEDS: MIDAZOLAM DRIP 50 mg/50mL 50 ML IV SCH (08:20)
[2022-02-14] MEDS: SODIUM CHLOR 0.9% PF (SALINE LOCK) 10ML VIAL/SYR IV SCH ×2 (10:31→21:49)
[2022-02-14] MEDS: QUEtiapine FUMARATE 25 MG TAB PO SCH ×2 (10:34→21:48)
[2022-02-14] MEDS: PANTOPRAZOLE 40 MG/10 ML VIAL INJ IV SCH (10:34)
[2022-02-14] MEDS: HEPARIN SODIUM (PORCINE) 5000 UNITS/ML 1ML VIAL SC SCH ×2 (10:43→21:48)
[2022-02-15] VITALS (10 sets, daily range): BP systolic 130–160; BP diastolic 73–101
[2022-02-15] MEDS: SODIUM CHLORIDE 0.9% 1,000 ML IV SCH (01:42)
[2022-02-15 03:46] LABS: Basophils # (auto) 0.1 10 ^3/uL (0-0.2); Basophils % (auto) 0.9 % (0.0-2.0); Eosinophils # (auto) 0.2 10 ^3/uL (0-0.8); Hematocrit 33.6 % (41.0-53.0); Hemoglobin 11.8 g/dL (13.5-17.5); Lymphocytes # (auto) 2.3 10 ^3/uL (0.4-5.4); Lymphocytes % (auto) 26.4 % (10.0-50.0); Mean Corpuscular Hemoglobin 32.8 pg (28.0-32.0); Mean Corpuscular Hgb Conc. 35.1 g/dL (32.0-36.0); Mean Corpuscular Volume 93.4 fL (80.0-100.0); Monocytes # (auto) 0.6 10 ^3/uL (0-1.3); Monocytes % (auto) 6.4 % (0.0-12.0); Neutrophils # (auto) 5.6 10 ^3/uL (1.6-8.6); Neutrophils % (auto) 64.3 % (37.0-80.0); Nucleated Red Blood Cells % 0.1 %; White Blood Cell 8.7 10^3/uL (4.4-10.8)
[2022-02-15 04:04] LABS: BUN/Creatinine Ratio 12.8; Calcium 8.2 mg/dL (8.5-10.1); Potassium 3.5 mmol/L (3.5-5.1)
[2022-02-15] MEDS: PANTOPRAZOLE 40 MG/10 ML VIAL INJ IV SCH (09:16)
[2022-02-15] MEDS: QUEtiapine FUMARATE 25 MG TAB PO SCH ×2 (09:17→21:39)
[2022-02-15] MEDS: HEPARIN SODIUM (PORCINE) 5000 UNITS/ML 1ML VIAL SC SCH ×2 (09:23→21:41)
[2022-02-15] MEDS: SODIUM CHLOR 0.9% PF (SALINE LOCK) 10ML VIAL/SYR IV SCH ×2 (09:35→21:40)
[2022-02-15] MEDS: HYDROcodone-ACET 5/325MG TAB PO PRN (10:27)
[2022-02-15] MEDS ORDERED: PROPRANOLOL HCL 20 MG TAB PO ONE (14:30)
[2022-02-15] MEDS ORDERED: amLODIPine BESYLATE 5 MG TAB PO ONE (14:30)
[2022-02-15] MEDS: PROPRANOLOL HCL 20 MG TAB PO SCH (21:40)
[2022-02-16] VITALS (8 sets, daily range): BP systolic 134–148; BP diastolic 83–101
[2022-02-16 04:48] LABS: Potassium 3.1 mmol/L (3.5-5.1)
[2022-02-16] MEDS ORDERED: QUET1TAB11 PO (10:00)
[2022-02-16] MEDS: PROPRANOLOL HCL 20 MG TAB PO SCH ×2 (10:04→21:51)
[2022-02-16] MEDS: FAMOTIDINE 20 MG TAB PO SCH (10:05)
[2022-02-16] MEDS: QUEtiapine FUMARATE 25 MG TAB PO SCH ×2 (10:06→21:52)
[2022-02-16] MEDS: amLODIPine BESYLATE 5 MG TAB PO SCH (10:07)
[2022-02-16] MEDS: HEPARIN SODIUM (PORCINE) 5000 UNITS/ML 1ML VIAL SC SCH ×2 (10:15→21:52)
[2022-02-16] MEDS: SODIUM CHLOR 0.9% PF (SALINE LOCK) 10ML VIAL/SYR IV SCH ×2 (10:15→21:51)
[2022-02-16] MEDS: levETIRAcetam 500 MG TAB PO SCH ×2 (10:20→21:51)
[2022-02-17] MEDS: amLODIPine BESYLATE 5 MG TAB PO SCH (08:33)
[2022-02-17] MEDS: HYDROcodone-ACET 5/325MG TAB PO PRN (08:33)
[2022-02-17] MEDS: QUEtiapine FUMARATE 25 MG TAB PO SCH (08:33)
[2022-02-17] MEDS: SODIUM CHLOR 0.9% PF (SALINE LOCK) 10ML VIAL/SYR IV SCH (08:34)
[2022-02-17] MEDS: levETIRAcetam 500 MG TAB PO SCH (08:34)
[2022-02-17] MEDS: FAMOTIDINE 20 MG TAB PO SCH (08:34)
[2022-02-17] MEDS: PROPRANOLOL HCL 20 MG TAB PO SCH (08:34)
[2022-02-17] MEDS: HEPARIN SODIUM (PORCINE) 5000 UNITS/ML 1ML VIAL SC SCH (08:39)
[2022-02-17 09:00] VITALS: BP 125/79
== END 2022-02-17 14:05 | disposition home or self-care (01) | DRG 208 ==
LOC: EDBD 23:00 → ER 23:00 → OVERFLOW 02-11 02:51 → ICU WEST 02-12 07:40 → TELE-CENTR 02-16 05:46
PROVIDERS: ADMIT Nurse Practitioner Family; ATTEND Internal Medicine
PROC: 5A1945Z Respiratory Ventilation, 24-96 Consecutive Hours (ICD-10-PCS; principal; 2022-02-11)
PROC: 0BH17EZ Insertion of Endotracheal Airway into Trachea, Via Natural or Artificial Opening (ICD-10-PCS; 2022-02-11)
DX: J96.01 Acute respiratory failure with hypoxia (principal); G93.41 Metabolic encephalopathy; N17.0 Acute kidney failure with tubular necrosis; N18.6 End stage renal disease; I12.0 Hypertensive chronic kidney disease with stage 5 chronic kidney disease or end stage renal disease; G40.409 Other generalized epilepsy and epileptic syndromes, not intractable, without status epilepticus; F43.10 Post-traumatic stress disorder, unspecified; Z20.822 Contact with and (suspected) exposure to COVID-19; E66.9 Obesity, unspecified; I48.91 Unspecified atrial fibrillation; E11.21 Type 2 diabetes mellitus with diabetic nephropathy; Z91.013 Allergy to seafood; Z88.5 Allergy status to narcotic agent; Z88.8 Allergy status to other drugs, medicaments and biological substances; Z79.899 Other long term (current) drug therapy; I25.2 Old myocardial infarction; Z87.820 Personal history of traumatic brain injury
CPT/HCPCS: 36415; 36569; 36600; 70450; 71045; 72125; 80048; 80053; 81001; 82542; 82805; 82962; 83036; 85025; 85610; 85730; 87070; 87081; 87205; 93005; 94002; 94003; 94640; 95819; 96365; 97163; C9113; G0378; J2250; J2704; J3490; J7060

== ENCOUNTER 2022-04-25 13:04 | Emergency (ER) | payer OTHER, MEDICAID ==
[~2022-04-25] VITALS: Ht 167.6 cm; Wt 72.0 kg
[~2022-04-25 13:04] MED LIST changes: +QUET1TAB11 PO
[2022-04-25 16:00] VITALS: BP 156/93
== END 2022-04-25 15:36 | disposition short-term general hospital (02) ==
LOC: ER 13:04
DX: S06.5X0A Traumatic subdural hemorrhage without loss of consciousness, initial encounter (principal); R55 Syncope and collapse; E11.22 Type 2 diabetes mellitus with diabetic chronic kidney disease; I12.0 Hypertensive chronic kidney disease with stage 5 chronic kidney disease or end stage renal disease; N18.6 End stage renal disease; I25.2 Old myocardial infarction; W01.0XXA Fall on same level from slipping, tripping and stumbling without subsequent striking against object, initial encounter; Y93.89 Activity, other specified; Y92.89 Other specified places as the place of occurrence of the external cause; Y99.8 Other external cause status
CPT/HCPCS: 70450; 99291

== ENCOUNTER 2022-05-30 22:36 | Emergency (ER) | payer OTHER, MEDICAID ==
[~2022-05-30] VITALS: Ht 185.4 cm; Wt 127.3 kg
[2022-05-30] MEDS ORDERED: BACITRACIN TOP OINT 1 UD PKG TOP ONE (23:45)
[2022-05-31] VITALS: BP 141/85
[2022-05-31 00:13] LABS: Urine WBC None Seen /hpf (0 - 3)
[2022-05-31 00:22] LABS: Urine Bacteria NONE SEEN /hpf (None Seen); Urine Blood Negative /uL (Negative); Urine Specific Gravity 1.002 (1.001-1.035)
[2022-05-31 00:34] LABS: Alcohol, Urine < 3.0 mg/dL (0-10); Amphetamine Screen, Urine NEGATIVE (NEGATIVE); Barbiturate Scree,Urine NEGATIVE (NEGATIVE); Benzodiazephine Screen, Urine NEGATIVE (NEGATIVE); Cannabinoid Screen, Urine NEGATIVE (NEGATIVE); Cocaine Screen, Urine NEGATIVE (NEGATIVE); Opiate Scree,Urine NEGATIVE (NEGATIVE); Phencyclidine Screen, Urine NEGATIVE (NEGATIVE)
[2022-05-31 00:39] LABS: Basophils # (auto) 0 10 ^3/uL (0-0.2); Basophils % (auto) 0.5 % (0.0-2.0); Eosinophils # (auto) 0.2 10 ^3/uL (0-0.8); Eosinophils % (auto) 2.1 % (0.0-7.0); Hematocrit 40.2 % (41.0-53.0); Hemoglobin 13.8 g/dL (13.5-17.5); Lymphocytes # (auto) 2.2 10 ^3/uL (0.4-5.4); Lymphocytes % (auto) 26.4 % (10.0-50.0); Mean Corpuscular Hemoglobin 31.8 pg (28.0-32.0); Mean Corpuscular Hgb Conc. 34.3 g/dL (32.0-36.0); Mean Corpuscular Volume 92.8 fL (80.0-100.0); Monocytes # (auto) 0.6 10 ^3/uL (0-1.3); Monocytes % (auto) 7.6 % (0.0-12.0); Neutrophils # (auto) 5.3 10 ^3/uL (1.6-8.6); Neutrophils % (auto) 63.4 % (37.0-80.0); Nucleated Red Blood Cells % 0.1 %; Red Blood Cells 4.34 10^6/uL (4.5-5.90); Red Cell Distribution Width 13.6 % (11.8-14.3); White Blood Cell 8.3 10^3/uL (4.4-10.8)
[2022-05-31] MEDS ORDERED: levETIRAcetam 500 MG/5ML INJ IV ONE (00:43)
[2022-05-31 00:45] LABS: Alanine Aminotransferase 23 U/L (16-61); Albumin 3.5 g/dL (3.4-5.0); Anion Gap 8 (5-15); Aspartate Aminotransferase 10 U/L (15-37); BUN/Creatinine Ratio 18.3; Blood Alcohol < 3.0 mg/dL (0-5); Blood Urea Nitrogen 20 mg/dL (7-18); Calcium 8.7 mg/dL (8.5-10.1); Carbon Dioxide 24 mmol/L (21-32); Chloride 108 mmol/L (98-107); GFR African American 92 mL/min; GFR Non-African American 76 mL/min; Glucose 98 mg/dL (74-106); Potassium 3.9 mmol/L (3.5-5.1); Sodium 140 mmol/L (136-145)
[2022-05-31 00:48] LABS: Alkaline Phosphatase 101 U/L (45-117); Bilirubin, Total 0.4 mg/dL (0.2-1.0); Total Protein 7.3 g/dL (6.4-8.2)
== END 2022-05-31 01:32 | disposition home or self-care (01) ==
LOC: ER 22:37
DX: G40.909 Epilepsy, unspecified, not intractable, without status epilepticus (principal); E11.22 Type 2 diabetes mellitus with diabetic chronic kidney disease; I12.0 Hypertensive chronic kidney disease with stage 5 chronic kidney disease or end stage renal disease; N18.6 End stage renal disease
CPT/HCPCS: 36415; 70450; 72125; 80053; 80307; 80320; 81001; 84484; 85025; 93005; 99285; J1953; J7060

== ENCOUNTER 2022-06-05 20:46 | Emergency (ER) | payer OTHER, MEDICAID ==
[~2022-06-05] VITALS: Ht 172.7 cm; Wt 118.2 kg
[2022-06-05 21:50] LABS: Amphetamine Screen, Urine NEGATIVE (NEGATIVE); Barbiturate Scree,Urine NEGATIVE (NEGATIVE); Benzodiazephine Screen, Urine NEGATIVE (NEGATIVE); Cannabinoid Screen, Urine NEGATIVE (NEGATIVE); Cocaine Screen, Urine NEGATIVE (NEGATIVE); Opiate Scree,Urine NEGATIVE (NEGATIVE); Phencyclidine Screen, Urine NEGATIVE (NEGATIVE)
[2022-06-05 21:52] LABS: Urine Bacteria NONE SEEN /hpf (None Seen); Urine Blood Negative /uL (Negative); Urine Mucus FEW (None Seen); Urine Specific Gravity 1.038 (1.001-1.035); Urine WBC 4 /hpf (0 - 3)
[2022-06-05 22:13] LABS: Basophils # (auto) 0 10 ^3/uL (0-0.2); Basophils % (auto) 0.2 % (0.0-2.0); Eosinophils # (auto) 0 10 ^3/uL (0-0.8); Hematocrit 48.5 % (41.0-53.0); Hemoglobin 16.3 g/dL (13.5-17.5); Lymphocytes # (auto) 1.9 10 ^3/uL (0.4-5.4); Lymphocytes % (auto) 9.5 % (10.0-50.0); Mean Corpuscular Hgb Conc. 33.6 g/dL (32.0-36.0); Mean Corpuscular Volume 92.2 fL (80.0-100.0); Monocytes # (auto) 1.3 10 ^3/uL (0-1.3); Monocytes % (auto) 6.2 % (0.0-12.0); Neutrophils # (auto) 17.1 10 ^3/uL (1.6-8.6); Neutrophils % (auto) 84.1 % (37.0-80.0); Nucleated Red Blood Cells % 0.1 %; Red Blood Cells 5.26 10^6/uL (4.5-5.90); Red Cell Distribution Width 13.5 % (11.8-14.3); White Blood Cell 20.4 10^3/uL (4.4-10.8)
[2022-06-05 22:35] LABS: Albumin 4.2 g/dL (3.4-5.0); Calcium 9.5 mg/dL (8.5-10.1); Potassium 3.9 mmol/L (3.5-5.1)
[2022-06-05 22:39] LABS: BUN/Creatinine Ratio 18.2; Bilirubin, Total 1.5 mg/dL (0.2-1.0); Total Protein 9.1 g/dL (6.4-8.2)
[2022-06-06 00:56] VITALS: BP 136/98
== END 2022-06-06 01:08 | disposition home or self-care (01) ==
LOC: ER 20:49
DX: K92.2 Gastrointestinal hemorrhage, unspecified (principal); I10 Essential (primary) hypertension; I48.91 Unspecified atrial fibrillation; I25.2 Old myocardial infarction; E11.9 Type 2 diabetes mellitus without complications; Z79.899 Other long term (current) drug therapy; Z79.2 Long term (current) use of antibiotics; Z88.5 Allergy status to narcotic agent; Z88.8 Allergy status to other drugs, medicaments and biological substances; Z91.013 Allergy to seafood
CPT/HCPCS: 36415; 71045; 74176; 80053; 80307; 81001; 83880; 84484; 85025

== ENCOUNTER 2022-09-17 | Emergency (ER) | payer OTHER, MEDICAID ==
[~2022-09-17] VITALS: Ht 167.6 cm; Wt 115.5 kg
[2022-09-17 00:25] VITALS: BP 134/99
[2022-09-17 01:02] LABS: Basophils # (auto) 0 10 ^3/uL (0-0.2); Basophils % (auto) 0.3 % (0.0-2.0); Eosinophils # (auto) 0 10 ^3/uL (0-0.8); Hematocrit 51.8 % (41.0-53.0); Hemoglobin 17.4 g/dL (13.5-17.5); Lymphocytes # (auto) 1.2 10 ^3/uL (0.4-5.4); Lymphocytes % (auto) 7.3 % (10.0-50.0); Mean Corpuscular Hgb Conc. 33.5 g/dL (32.0-36.0); Mean Corpuscular Volume 92.5 fL (80.0-100.0); Monocytes # (auto) 0.5 10 ^3/uL (0-1.3); Monocytes % (auto) 2.7 % (0.0-12.0); Neutrophils # (auto) 15.2 10 ^3/uL (1.6-8.6); Neutrophils % (auto) 89.7 % (37.0-80.0); Nucleated Red Blood Cells % 0.1 %; Red Cell Distribution Width 13.8 % (11.8-14.3)
[2022-09-17 01:57] LABS: Albumin 4.5 g/dL (3.4-5.0); BUN/Creatinine Ratio 21.4; Bilirubin, Total 0.8 mg/dL (0.2-1.0); Potassium 5.1 mmol/L (3.5-5.1)
== END 2022-09-17 04:50 | disposition left against medical advice (07) ==
LOC: ER
DX: R07.89 Other chest pain (principal); E11.22 Type 2 diabetes mellitus with diabetic chronic kidney disease; I13.0 Hypertensive heart and chronic kidney disease with heart failure and stage 1 through stage 4 chronic kidney disease, or unspecified chronic kidney disease; N18.9 Chronic kidney disease, unspecified; I50.9 Heart failure, unspecified; I25.2 Old myocardial infarction; Z91.013 Allergy to seafood; Z88.6 Allergy status to analgesic agent
CPT/HCPCS: 36415; 71045; 80053; 84484; 85025; 93005

== ENCOUNTER 2022-11-08 16:34 | Emergency (ER) | payer MEDICAID, MEDICARE, OTHER ==
[~2022-11-08] VITALS: Ht 167.6 cm; Wt 145.5 kg
[2022-11-08] MEDS ORDERED: FUROSEMIDE 40 MG/4 ML VIAL IV ONE (17:30)
[2022-11-08 18:29] LABS: Basophils # (auto) 0 10 ^3/uL (0-0.2); Basophils % (auto) 0.5 % (0.0-2.0); Eosinophils # (auto) 0.1 10 ^3/uL (0-0.8); Eosinophils % (auto) 0.6 % (0.0-7.0); Hematocrit 45.7 % (41.0-53.0); Hemoglobin 15.5 g/dL (13.5-17.5); Lymphocytes # (auto) 2.1 10 ^3/uL (0.4-5.4); Lymphocytes % (auto) 20.3 % (10.0-50.0); Mean Corpuscular Hemoglobin 31.7 pg (28.0-32.0); Mean Corpuscular Hgb Conc. 33.9 g/dL (32.0-36.0); Mean Corpuscular Volume 93.5 fL (80.0-100.0); Monocytes # (auto) 0.7 10 ^3/uL (0-1.3); Monocytes % (auto) 7.3 % (0.0-12.0); Neutrophils # (auto) 7.3 10 ^3/uL (1.6-8.6); Neutrophils % (auto) 71.3 % (37.0-80.0); Nucleated Red Blood Cells % 0.2 %; Red Blood Cells 4.88 10^6/uL (4.5-5.90); Red Cell Distribution Width 13.3 % (11.8-14.3); White Blood Cell 10.2 10^3/uL (4.4-10.8)
[2022-11-08 18:44] LABS: Albumin 3.9 g/dL (3.4-5.0); BUN/Creatinine Ratio 13.5; Calcium 8.9 mg/dL (8.5-10.1); Magnesium 1.9 mg/dL (1.6-2.6); Potassium 4.4 mmol/L (3.5-5.1)
[2022-11-08 18:46] LABS: INR 1.03 (0.9-1.15); Partial Thromboplastin Time 29.1 sec (24.6-33.4)
[2022-11-08 18:47] LABS: Bilirubin, Total 0.6 mg/dL (0.2-1.0); Total Protein 7.8 g/dL (6.4-8.2)
[2022-11-08] MEDS ORDERED: POTA10TA51 PO (21:18)
[2022-11-08] MEDS ORDERED: FURO1TAB33 PO (21:18)
[2022-11-08] MEDS ORDERED: FUROSEMIDE 20 MG TAB PO ONE (22:30)
[2022-11-08 22:39] VITALS: BP 141/105
== END 2022-11-08 22:43 | disposition home or self-care (01) ==
LOC: ER 16:34
DX: R06.09 Other forms of dyspnea (principal); I13.0 Hypertensive heart and chronic kidney disease with heart failure and stage 1 through stage 4 chronic kidney disease, or unspecified chronic kidney disease; E11.22 Type 2 diabetes mellitus with diabetic chronic kidney disease; N18.9 Chronic kidney disease, unspecified; I50.9 Heart failure, unspecified; I48.91 Unspecified atrial fibrillation; I25.2 Old myocardial infarction; Z79.899 Other long term (current) drug therapy; Z79.2 Long term (current) use of antibiotics; Z88.5 Allergy status to narcotic agent; Z88.8 Allergy status to other drugs, medicaments and biological substances; Z91.013 Allergy to seafood
CPT/HCPCS: 36415; 71045; 80053; 83735; 83880; 84484; 85025; 85610; 85730; 93005

== ENCOUNTER 2023-05-28 21:52 | Emergency (ER) | payer MEDICARE, MEDICAID ==
[~2023-05-28] VITALS: Ht 167.6 cm; Wt 145.0 kg
[2023-05-28 21:52] VITALS: BP 133/96; RESP 16; O2SAT 98
[~2023-05-28 21:52] MED LIST changes: -AMLO-496 PO; +AMLO1TAB23 PO; +FURO1TAB33 PO; +POTA10TA51 PO; +PROP1TAB53 PO; -PROP20TA73 PO
[2023-05-28 22:37] LABS: Basophils # (auto) 0.1 10 ^3/uL (0-0.2); Basophils % (auto) 0.6 % (0.0-2.0); Eosinophils # (auto) 0.2 10 ^3/uL (0-0.8); Eosinophils % (auto) 1.9 % (0.0-7.0); Hematocrit 46.4 % (41.0-53.0); Hemoglobin 15.7 g/dL (13.5-17.5); Lymphocytes # (auto) 3.3 10 ^3/uL (0.4-5.4); Lymphocytes % (auto) 25.2 % (10.0-50.0); Mean Corpuscular Hemoglobin 31.5 pg (28.0-32.0); Mean Corpuscular Hgb Conc. 33.7 g/dL (32.0-36.0); Mean Corpuscular Volume 93.5 fL (80.0-100.0); Monocytes # (auto) 0.8 10 ^3/uL (0-1.3); Monocytes % (auto) 6.1 % (0.0-12.0); Neutrophils # (auto) 8.6 10 ^3/uL (1.6-8.6); Neutrophils % (auto) 66.2 % (37.0-80.0); Nucleated Red Blood Cells % 0.1 %; Red Blood Cells 4.97 10^6/uL (4.5-5.90); Red Cell Distribution Width 13.6 % (11.8-14.3)
[2023-05-28 22:54] LABS: Alanine Aminotransferase 23 U/L (7-40); Albumin 4.4 g/dL (3.2-4.8); Anion Gap 8 (5-15); Aspartate Aminotransferase 14 U/L (13-40); BUN/Creatinine Ratio 11.8 (10.0-20.0); Bilirubin, Total 0.4 mg/dL (0.2-1.0); Blood Urea Nitrogen 14 mg/dL (9-23); Calcium 9.4 mg/dL (8.7-10.4); Carbon Dioxide 22 mmol/L (20-30); Chloride 106 mmol/L (98-107); Glucose 126 mg/dL (74-106); Magnesium 1.7 mg/dL (1.6-2.6); Sodium 136 mmol/L (136-145); Total Protein 7.7 g/dL (5.7-8.2)
[2023-05-28 22:57] LABS: Urine Bacteria NONE SEEN /hpf (None Seen); Urine Blood Negative /uL (Negative); Urine Clarity Clear (Clear); Urine Protein, UAD Negative (Negative); Urine Specific Gravity 1.006 (1.001-1.035); Urine Urobilinogen Normal (Negative); Urine WBC <1 /hpf (0 - 3); Urine pH 5.5 (5.0-8.0)
[2023-05-28 23:01] LABS: Urine Color Straw (Yellow)
[2023-05-28 23:02] LABS: INR 1.04 (0.9-1.15); Partial Thromboplastin Time 21.7 SEC (24.5-34.5); Prothrombin Time 10.9 sec (9.3-11.8)
[2023-05-28 23:10] LABS: Alkaline Phosphatase 114 U/L (46-116)
[2023-05-29 01:27] VITALS: PULSE 90
== END 2023-05-29 03:29 | disposition left against medical advice (07) ==
LOC: ER 21:52
DX: R07.89 Other chest pain (principal); F41.9 Anxiety disorder, unspecified; I48.91 Unspecified atrial fibrillation; I13.0 Hypertensive heart and chronic kidney disease with heart failure and stage 1 through stage 4 chronic kidney disease, or unspecified chronic kidney disease; E11.22 Type 2 diabetes mellitus with diabetic chronic kidney disease; N18.9 Chronic kidney disease, unspecified; I50.89 Other heart failure; Z90.49 Acquired absence of other specified parts of digestive tract; Z53.29 Procedure and treatment not carried out because of patient's decision for other reasons; Z88.5 Allergy status to narcotic agent; Z88.8 Allergy status to other drugs, medicaments and biological substances; Z79.899 Other long term (current) drug therapy
CPT/HCPCS: 36415; 71045; 80053; 81001; 83735; 83880; 84443; 84484; 85025; 85379; 85610; 85730; 93005

== ENCOUNTER 2023-07-10 21:21 | Emergency (ER) | payer MEDICARE, OTHER, MEDICAID ==
[~2023-07-10] VITALS: Ht 167.6 cm; Wt 131.8 kg
[2023-07-10 21:31] VITALS: BP 135/81; RESP 20; O2SAT 94
[2023-07-10 22:14] LABS: Alanine Aminotransferase 18 U/L (7-40); Albumin 4.5 g/dL (3.2-4.8); Alkaline Phosphatase 104 U/L (46-116); Anion Gap 8 (5-15); Aspartate Aminotransferase 17 U/L (13-40); BUN/Creatinine Ratio 9.9 (10.0-20.0); Bilirubin, Total 0.5 mg/dL (0.2-1.0); Blood Urea Nitrogen 12 mg/dL (9-23); Calcium 9.5 mg/dL (8.7-10.4); Carbon Dioxide 23 mmol/L (20-30); Chloride 107 mmol/L (98-107); Glucose 115 mg/dL (74-106); Potassium 3.9 mmol/L (3.5-5.1); Sodium 138 mmol/L (136-145); Total Protein 7.9 g/dL (5.7-8.2)
[2023-07-10 22:16] LABS: Basophils # (auto) 0.1 10 ^3/uL (0-0.2); Basophils % (auto) 0.6 % (0.0-2.0); Eosinophils # (auto) 0.1 10 ^3/uL (0-0.8); Eosinophils % (auto) 1.2 % (0.0-7.0); Hematocrit 45.3 % (41.0-53.0); Hemoglobin 15.1 g/dL (13.5-17.5); Lymphocytes # (auto) 2.6 10 ^3/uL (0.4-5.4); Lymphocytes % (auto) 21.9 % (10.0-50.0); Mean Corpuscular Hemoglobin 31.1 pg (28.0-32.0); Mean Corpuscular Hgb Conc. 33.2 g/dL (32.0-36.0); Mean Corpuscular Volume 93.5 fL (80.0-100.0); Monocytes # (auto) 0.9 10 ^3/uL (0-1.3); Monocytes % (auto) 7.3 % (0.0-12.0); Neutrophils # (auto) 8.2 10 ^3/uL (1.6-8.6); Nucleated Red Blood Cells % 0.1 %; Red Blood Cells 4.85 10^6/uL (4.5-5.90); Red Cell Distribution Width 13.4 % (11.8-14.3); White Blood Cell 11.8 10^3/uL (4.4-10.8)
[2023-07-11 00:18] VITALS: PULSE 84
== END 2023-07-11 02:18 | disposition home or self-care (01) ==
LOC: ER 21:21
DX: R07.89 Other chest pain (principal); I13.0 Hypertensive heart and chronic kidney disease with heart failure and stage 1 through stage 4 chronic kidney disease, or unspecified chronic kidney disease; E11.22 Type 2 diabetes mellitus with diabetic chronic kidney disease; N18.9 Chronic kidney disease, unspecified; I50.9 Heart failure, unspecified; I48.91 Unspecified atrial fibrillation; I25.2 Old myocardial infarction; Z85.9 Personal history of malignant neoplasm, unspecified; Z98.890 Other specified postprocedural states; Z88.8 Allergy status to other drugs, medicaments and biological substances; Z79.899 Other long term (current) drug therapy
CPT/HCPCS: 36415; 71045; 80053; 83880; 84484; 85025; 93005

== ENCOUNTER 2023-07-14 13:14 | Inpatient (IN) | payer MEDICARE, MEDICAID ==
[~2023-07-14] VITALS: Ht 167.6 cm; Wt 123.6 kg
[2023-07-14 13:31] VITALS: BP 130/92; PULSE 99; RESP 22
[2023-07-14 14:15] LABS: Basophils # (auto) 0 10 ^3/uL (0-0.2); Basophils % (auto) 0.4 % (0.0-2.0); Eosinophils # (auto) 0 10 ^3/uL (0-0.8); Eosinophils % (auto) 0.2 % (0.0-7.0); Hematocrit 45.9 % (41.0-53.0); Hemoglobin 15.7 g/dL (13.5-17.5); Lymphocytes % (auto) 26.7 % (10.0-50.0); Mean Corpuscular Hemoglobin 31.5 pg (28.0-32.0); Mean Corpuscular Hgb Conc. 34.2 g/dL (32.0-36.0); Monocytes # (auto) 0.7 10 ^3/uL (0-1.3); Monocytes % (auto) 8.6 % (0.0-12.0); Neutrophils # (auto) 4.9 10 ^3/uL (1.6-8.6); Neutrophils % (auto) 64.1 % (37.0-80.0); Nucleated Red Blood Cells % 0.1 %; Red Blood Cells 4.99 10^6/uL (4.5-5.90); Red Cell Distribution Width 13.8 % (11.8-14.3); White Blood Cell 7.6 10^3/uL (4.4-10.8)
[2023-07-14 14:24] LABS: Alanine Aminotransferase 27 U/L (7-40); Albumin 4.5 g/dL (3.2-4.8); Alkaline Phosphatase 112 U/L (46-116); Anion Gap 10 (5-15); Aspartate Aminotransferase 18 U/L (13-40); BUN/Creatinine Ratio 11.4 (10.0-20.0); Blood Urea Nitrogen 17 mg/dL (9-23); Calcium 9.4 mg/dL (8.7-10.4); Carbon Dioxide 23 mmol/L (20-30); Chloride 105 mmol/L (98-107); Glucose 147 mg/dL (74-106); Magnesium 1.7 mg/dL (1.6-2.6); Potassium 3.6 mmol/L (3.5-5.1); Sodium 138 mmol/L (136-145)
[2023-07-14 14:25] LABS: Bilirubin, Total 0.9 mg/dL (0.2-1.0); Total Protein 7.6 g/dL (5.7-8.2)
[2023-07-14] MEDS ORDERED: ACETAMINOPHEN 325 MG TAB PO PRN (16:45)
[2023-07-14] MEDS ORDERED: DEXTROSE (50%) 50ML SYRG IV PRN (16:45)
[2023-07-14] MEDS ORDERED: ACCU-CHEK COMFORT CURVE STRIP VI SCH (17:00)
[2023-07-14] MEDS ORDERED: InsuLIN REG 1unit/0.01ml Soln (100units/ml) SC SCH (17:00)
[2023-07-14 17:16] LABS: LDL Cholesterol 89 mg/dL (< 100); Triglycerides 96 mg/dL (< 150)
[2023-07-14 17:17] LABS: HDL Cholesterol 37 mg/dL (40-59)
[2023-07-14 17:18] LABS: Cholesterol 140 mg/dL (< 200)
[2023-07-14] MEDS ORDERED: PROPRANOLOL HCL 20 MG TAB PO SCH (22:00)
[2023-07-14] MEDS ORDERED: Ropinirole Hydrochloride (Ropinirole Hcl) 1 MG PO SCH (22:00)
[2023-07-14] MEDS ORDERED: levETIRAcetam 500 MG TAB PO SCH (22:00)
[2023-07-14] MEDS ORDERED: QUEtiapine FUMARATE 25 MG TAB PO SCH (22:00)
[2023-07-15] MEDS ORDERED: DICYCLOMINE HCL 10 MG CAP PO SCH (10:00)
[2023-07-15] MEDS ORDERED: amLODIPine BESYLATE 5 MG TAB PO SCH (10:00)
[2023-07-15] MEDS ORDERED: ENOXAPARIN SOD 40 MG/0.4 ML SYRINGE SC SCH (10:00)
== END 2023-07-15 00:48 | disposition left against medical advice (07) | DRG 292 ==
LOC: ER 13:15 → OVERFLOW 16:40
PROVIDERS: ADMIT Nurse Practitioner Family; ATTEND Nurse Practitioner Family
DX: I11.0 Hypertensive heart disease with heart failure (principal); Z68.41 Body mass index [BMI] 40.0-44.9, adult; E11.9 Type 2 diabetes mellitus without complications; E66.01 Morbid (severe) obesity due to excess calories; F41.9 Anxiety disorder, unspecified; I48.91 Unspecified atrial fibrillation; Z85.6 Personal history of leukemia; Z91.013 Allergy to seafood; Z88.5 Allergy status to narcotic agent; Z88.8 Allergy status to other drugs, medicaments and biological substances; I25.2 Old myocardial infarction; I50.9 Heart failure, unspecified
CPT/HCPCS: 36415; 71046; 80053; 80061; 83036; 83735; 83880; 84484; 85025; 85379; 93005; G0378

== ENCOUNTER 2023-07-25 18:03 | Emergency (ER) | payer MEDICARE, MEDICAID ==
[~2023-07-25] VITALS: Ht 167.6 cm; Wt 127.2 kg
[2023-07-25 19:27] VITALS: BP 131/83; RESP 20; O2SAT 97
[2023-07-25 19:58] LABS: Basophils # (auto) 0.1 10 ^3/uL (0-0.2); Basophils % (auto) 0.5 % (0.0-2.0); Eosinophils # (auto) 0.2 10 ^3/uL (0-0.8); Eosinophils % (auto) 1.4 % (0.0-7.0); Hematocrit 46.3 % (41.0-53.0); Hemoglobin 15.3 g/dL (13.5-17.5); Lymphocytes % (auto) 24.4 % (10.0-50.0); Mean Corpuscular Hemoglobin 30.6 pg (28.0-32.0); Mean Corpuscular Volume 92.9 fL (80.0-100.0); Monocytes % (auto) 8.1 % (0.0-12.0); Neutrophils # (auto) 8.2 10 ^3/uL (1.6-8.6); Neutrophils % (auto) 65.6 % (37.0-80.0); Nucleated Red Blood Cells % 0.1 %; Red Blood Cells 4.99 10^6/uL (4.5-5.90); Red Cell Distribution Width 13.3 % (11.8-14.3); White Blood Cell 12.5 10^3/uL (4.4-10.8)
[2023-07-25 20:21] LABS: Alanine Aminotransferase 32 U/L (7-40); Albumin 4.4 g/dL (3.2-4.8); Alkaline Phosphatase 118 U/L (46-116); Anion Gap 9 (5-15); Aspartate Aminotransferase 21 U/L (13-40); Bilirubin, Total 0.5 mg/dL (0.2-1.0); Calcium 9.7 mg/dL (8.7-10.4); Carbon Dioxide 21 mmol/L (20-30); Chloride 108 mmol/L (98-107); Glucose 114 mg/dL (74-106); Sodium 138 mmol/L (136-145); Total Protein 7.5 g/dL (5.7-8.2)
[2023-07-25 21:27] LABS: Magnesium 1.5 mg/dL (1.6-2.6)
[2023-07-25 23:18] VITALS: PULSE 92
[2023-07-25 23:25] LABS: BUN/Creatinine Ratio 14.5 (10.0-20.0); Blood Urea Nitrogen 20 mg/dL (9-23)
== END 2023-07-26 05:50 | disposition left against medical advice (07) ==
LOC: ER 18:03
DX: R06.02 Shortness of breath (principal); R05.9 Cough, unspecified; I48.91 Unspecified atrial fibrillation; I25.2 Old myocardial infarction; I13.0 Hypertensive heart and chronic kidney disease with heart failure and stage 1 through stage 4 chronic kidney disease, or unspecified chronic kidney disease; E11.22 Type 2 diabetes mellitus with diabetic chronic kidney disease; N18.9 Chronic kidney disease, unspecified; I50.9 Heart failure, unspecified; Z90.49 Acquired absence of other specified parts of digestive tract; Z79.2 Long term (current) use of antibiotics; Z79.899 Other long term (current) drug therapy; Z88.8 Allergy status to other drugs, medicaments and biological substances; Z88.5 Allergy status to narcotic agent; Z91.013 Allergy to seafood
CPT/HCPCS: 36415; 71045; 80053; 83735; 83880; 84484; 85025; 93005

== ENCOUNTER 2023-08-01 16:48 | Inpatient (IN) | payer MEDICARE, MEDICAID ==
[~2023-08-01] VITALS: Ht 167.6 cm; Wt 122.6 kg
[2023-08-01 18:46] LABS: Basophils # (auto) 0.1 10 ^3/uL (0-0.2); Basophils % (auto) 0.5 % (0.0-2.0); Eosinophils # (auto) 0.1 10 ^3/uL (0-0.8); Hematocrit 44.7 % (41.0-53.0); Hemoglobin 15.2 g/dL (13.5-17.5); Lymphocytes % (auto) 18.4 % (10.0-50.0); Mean Corpuscular Hemoglobin 31.4 pg (28.0-32.0); Mean Corpuscular Volume 92.4 fL (80.0-100.0); Monocytes # (auto) 0.8 10 ^3/uL (0-1.3); Monocytes % (auto) 7.1 % (0.0-12.0); Neutrophils # (auto) 7.7 10 ^3/uL (1.6-8.6); Nucleated Red Blood Cells % 0.2 %; Red Blood Cells 4.84 10^6/uL (4.5-5.90); Red Cell Distribution Width 13.3 % (11.8-14.3); White Blood Cell 10.6 10^3/uL (4.4-10.8)
[2023-08-01 18:52] LABS: Alanine Aminotransferase 21 U/L (7-40); Alkaline Phosphatase 82 U/L (46-116); Anion Gap 12 (5-15); Aspartate Aminotransferase 15 U/L (13-40); BUN/Creatinine Ratio 11.8 (10.0-20.0); Blood Urea Nitrogen 10 mg/dL (9-23); Calcium 6.8 mg/dL (8.5-10.1); Carbon Dioxide 20 mmol/L (20-30); Chloride 108 mmol/L (98-107); Glucose 57 mg/dL (74-106); Potassium 4.1 mmol/L (3.5-5.1); Sodium 140 mmol/L (136-145)
[2023-08-01 18:53] LABS: Albumin 3.3 g/dL (3.2-4.8); Bilirubin, Total 0.5 mg/dL (0.2-1.0); Total Protein 5.4 g/dL (5.7-8.2)
[2023-08-01 19:21] LABS: Magnesium 2.1 mg/dL (1.6-2.6)
[2023-08-01 19:32] LABS: INR 1.07 (0.9-1.15); Partial Thromboplastin Time 27.8 SEC (24.5-34.5); Prothrombin Time 11.2 sec (9.3-11.8)
[2023-08-01] MEDS ORDERED: IPRATROPIUM BROM 0.5 MG/2.5ML INH SOL NEB ONE (22:15)
[2023-08-01] MEDS ORDERED: ALBUTEROL MEDNEB 2.5 mg/3ml NEB ONE (22:15)
[2023-08-01] MEDS ORDERED: ALBUTEROL SULF 2.5 MG/0.5ML(0.5%) NEB SOLN NEB ONE (22:15)
[2023-08-01 22:56] VITALS: O2SAT 97
[2023-08-01] MEDS ORDERED: ACETAMINOPHEN 325 MG TAB PO PRN (23:30)
[2023-08-01] MEDS ORDERED: ONDANSETRON HCL 4 MG/2 ML VIAL IV PRN (23:30)
[2023-08-01] MEDS ORDERED: MORPHINE SULFATE INJ 2 MG/ml SYRG IV PRN (23:30)
[2023-08-01] MEDS ORDERED: ALBUTEROL MEDNEB 2.5 mg/3ml NEB NEB PRN (23:30)
[2023-08-01] MEDS ORDERED: TEMAZEPAM 15 MG CAP PO PRN (23:30)
[2023-08-01] MEDS ORDERED: NITROGLYCERIN 0.4 MG SL TAB SL PRN (23:30)
[2023-08-02 02:54] VITALS: BP 143/82; PULSE 96; RESP 20; O2SAT 97
[2023-08-02 06:07] VITALS: PULSE 101; RESP 20; O2SAT 96
[2023-08-02 06:18] VITALS: BP 148/94; PULSE 85; RESP 20; TEMP 98.4; O2SAT 99
[2023-08-02 06:45] LABS: Anion Gap 10 (5-15); Carbon Dioxide 24 mmol/L (20-30); Chloride 105 mmol/L (98-107); Potassium 3.8 mmol/L (3.5-5.1); Sodium 139 mmol/L (136-145)
[2023-08-02 06:47] LABS: Calcium 9.5 mg/dL (8.7-10.4)
[2023-08-02 06:51] LABS: Blood Urea Nitrogen 14 mg/dL (9-23); Glucose 99 mg/dL (74-106)
[2023-08-02 06:52] LABS: BUN/Creatinine Ratio 8.6 (10.0-20.0)
[2023-08-02] MEDS ORDERED: FUROSEMIDE 20 MG TAB PO SCH (10:00)
[2023-08-02] MEDS ORDERED: PROPRANOLOL HCL 20 MG TAB PO SCH (10:00)
[2023-08-02] MEDS ORDERED: amLODIPine BESYLATE 5 MG TAB PO SCH (10:00)
[2023-08-02] MEDS ORDERED: levETIRAcetam 500 MG TAB PO SCH (10:00)
== END 2023-08-02 10:54 | disposition left against medical advice (07) | DRG 683 ==
LOC: ER 16:48 → TELE 23:23
PROVIDERS: ADMIT Nurse Practitioner; ATTEND Nurse Practitioner Acute Care
DX: N17.9 Acute kidney failure, unspecified (principal); I13.0 Hypertensive heart and chronic kidney disease with heart failure and stage 1 through stage 4 chronic kidney disease, or unspecified chronic kidney disease; Z68.41 Body mass index [BMI] 40.0-44.9, adult; R06.03 Acute respiratory distress; E66.01 Morbid (severe) obesity due to excess calories; E11.9 Type 2 diabetes mellitus without complications; I48.91 Unspecified atrial fibrillation; I50.9 Heart failure, unspecified; Z91.013 Allergy to seafood; Z88.8 Allergy status to other drugs, medicaments and biological substances; Z88.5 Allergy status to narcotic agent; I25.2 Old myocardial infarction; N18.9 Chronic kidney disease, unspecified
CPT/HCPCS: 36415; 70450; 71045; 80048; 80053; 83735; 83880; 84484; 85025; 85379; 85610; 85730; 93005; 94640; G0378

== ENCOUNTER 2023-08-04 18:32 | Inpatient (IN) | payer MEDICARE, MEDICAID ==
[~2023-08-04] VITALS: Ht 167.6 cm; Wt 122.9 kg
[2023-08-04 18:58] LABS: Basophils # (auto) 0 10 ^3/uL (0-0.2); Basophils % (auto) 0.5 % (0.0-2.0); Eosinophils # (auto) 0.1 10 ^3/uL (0-0.8); Eosinophils % (auto) 0.9 % (0.0-7.0); Hematocrit 42.5 % (41.0-53.0); Hemoglobin 14.1 g/dL (13.5-17.5); Lymphocytes # (auto) 1.8 10 ^3/uL (0.4-5.4); Lymphocytes % (auto) 19.9 % (10.0-50.0); Mean Corpuscular Hemoglobin 30.9 pg (28.0-32.0); Mean Corpuscular Hgb Conc. 33.2 g/dL (32.0-36.0); Mean Corpuscular Volume 93.2 fL (80.0-100.0); Monocytes # (auto) 0.6 10 ^3/uL (0-1.3); Monocytes % (auto) 6.3 % (0.0-12.0); Neutrophils # (auto) 6.6 10 ^3/uL (1.6-8.6); Neutrophils % (auto) 72.4 % (37.0-80.0); Nucleated Red Blood Cells % 0.1 %; Red Blood Cells 4.56 10^6/uL (4.5-5.90); Red Cell Distribution Width 13.5 % (11.8-14.3); White Blood Cell 9.2 10^3/uL (4.4-10.8)
[2023-08-04 19:15] LABS: Alanine Aminotransferase 26 U/L (7-40); Albumin 4.3 g/dL (3.2-4.8); Alkaline Phosphatase 88 U/L (46-116); Anion Gap 10 (5-15); Aspartate Aminotransferase 28 U/L (13-40); BUN/Creatinine Ratio 12.5 (10.0-20.0); Bilirubin, Total 0.9 mg/dL (0.2-1.0); Blood Urea Nitrogen 17 mg/dL (9-23); Calcium 9.5 mg/dL (8.5-10.1); Carbon Dioxide 22 mmol/L (20-30); Chloride 107 mmol/L (98-107); Glucose 115 mg/dL (74-106); Potassium 3.8 mmol/L (3.5-5.1); Sodium 139 mmol/L (136-145); Total Protein 7.3 g/dL (5.7-8.2)
[2023-08-04] MEDS ORDERED: LORazepam 0.5 MG TAB PO ONE (22:45)
[2023-08-04] MEDS ORDERED: FUROSEMIDE 40 MG/4 ML VIAL IV ONE (22:45)
[2023-08-04] MEDS ORDERED: ONDANSETRON HCL 4 MG/2 ML VIAL IV ONE (22:45)
[2023-08-04] MEDS ORDERED: MORPHINE SULFATE 4 MG/ML SYR/VIAL IV ONE (22:45)
[2023-08-04] MEDS ORDERED: ASPirin 81 mg TAB PO ONE (22:45)
[2023-08-04] MEDS ORDERED: NITROGLYCERIN 2% OINT 1GM PKG TD ONE (22:45)
[2023-08-04] MEDS ORDERED: DOCUSATE SOD 100 MG CAP PO PRN (23:30)
[2023-08-04] MEDS ORDERED: DEXTROSE (50%) 50ML SYRG IV PRN (23:30)
[2023-08-04] MEDS ORDERED: NITROGLYCERIN 0.4 MG SL TAB SL PRN (23:30)
[2023-08-04] MEDS ORDERED: ACETAMINOPHEN 325 MG TAB PO PRN (23:30)
[2023-08-05 01:06] LABS: Urine Bacteria NONE SEEN /hpf (None Seen); Urine Blood Negative /uL (Negative); Urine Clarity Clear (Clear); Urine Color Yellow (Yellow); Urine Mucus FEW (None Seen); Urine Protein, UAD 1+ (Negative); Urine Specific Gravity 1.038 (1.001-1.035); Urine WBC 9 /hpf (0 - 3); Urine pH 5.5 (5.0-8.0)
[2023-08-05] MEDS: levETIRAcetam 500 mg/100ml 100 ML IV SCH (01:56)
[2023-08-05] MEDS: SODIUM CHLOR 0.9% PF (SALINE LOCK) 10ML VIAL/SYR IV SCH (06:26)
[2023-08-05] MEDS: MORPHINE SULFATE INJ 2 MG/ml SYRG IV PRN ×2 (06:27→14:34)
[2023-08-05] MEDS: ONDANSETRON HCL 4 MG/2 ML VIAL IV PRN ×2 (06:27→14:37)
[2023-08-05 06:41] LABS: Basophils # (auto) 0 10 ^3/uL (0-0.2); Basophils % (auto) 0.2 % (0.0-2.0); Eosinophils # (auto) 0 10 ^3/uL (0-0.8); Eosinophils % (auto) 0.2 % (0.0-7.0); Hematocrit 42.9 % (41.0-53.0); Hemoglobin 13.8 g/dL (13.5-17.5); Lymphocytes # (auto) 1.8 10 ^3/uL (0.4-5.4); Lymphocytes % (auto) 14.7 % (10.0-50.0); Mean Corpuscular Hemoglobin 31.1 pg (28.0-32.0); Mean Corpuscular Hgb Conc. 32.2 g/dL (32.0-36.0); Mean Corpuscular Volume 96.6 fL (80.0-100.0); Monocytes # (auto) 0.7 10 ^3/uL (0-1.3); Monocytes % (auto) 5.7 % (0.0-12.0); Neutrophils # (auto) 9.6 10 ^3/uL (1.6-8.6); Neutrophils % (auto) 79.2 % (37.0-80.0); Red Blood Cells 4.45 10^6/uL (4.5-5.90); Red Cell Distribution Width 14.3 % (11.8-14.3); White Blood Cell 12.1 10^3/uL (4.4-10.8)
[2023-08-05 06:55] LABS: Alanine Aminotransferase 20 U/L (7-40); Albumin 4.6 g/dL (3.2-4.8); Alkaline Phosphatase 93 U/L (46-116); Anion Gap 12 (5-15); Aspartate Aminotransferase 25 U/L (13-40); BUN/Creatinine Ratio 8.7 (10.0-20.0); Blood Urea Nitrogen 13 mg/dL (9-23); Calcium 9.1 mg/dL (8.7-10.4); Carbon Dioxide 21 mmol/L (20-30); Chloride 104 mmol/L (98-107); Glucose 119 mg/dL (74-106); Potassium 3.9 mmol/L (3.5-5.1); Sodium 137 mmol/L (136-145)
[2023-08-05 06:56] LABS: Bilirubin, Total 1.1 mg/dL (0.2-1.0); Total Protein 7.9 g/dL (5.7-8.2)
[2023-08-05] MEDS: InsuLIN REG 1unit/0.01ml Soln (100units/ml) SC SCH ×3 (08:43→17:00)
[2023-08-05] MEDS: ACCU-CHEK COMFORT CURVE STRIP VI SCH (08:44)
[2023-08-05 08:45] VITALS: PULSE 102; RESP 16; O2SAT 96
[2023-08-05] MEDS ORDERED: ALBUTEROL MEDNEB 2.5 mg/3ml NEB NEB PRN (09:15)
[2023-08-05] MEDS ORDERED: IPRATROPIUM BROM 0.5 MG/2.5ML INH SOL NEB PRN (09:15)
[2023-08-05] MEDS ORDERED: FUROSEMIDE 40 MG/4 ML VIAL IV SCH (10:00)
[2023-08-05] MEDS ORDERED: FUROSEMIDE 20 MG/2 ML VIAL IV SCH (10:00)
[2023-08-05 10:09] VITALS: BP 126/94; PULSE 102; RESP 16; TEMP 97.8; O2SAT 96
[2023-08-05 10:26] LABS: Magnesium 1.9 mg/dL (1.6-2.6)
[2023-08-05 18:23] VITALS: BP 137/86; PULSE 82; RESP 18; TEMP 97.6; O2SAT 98
[2023-08-05 20:00] VITALS: BP 127/69; PULSE 72; PULSE 83; RESP 18; TEMP 97.5; O2SAT 97
[2023-08-05 22:00] VITALS: BP 127/69; PULSE 72; RESP 18; TEMP 97.5; O2SAT 97
[2023-08-05] MEDS: ATORVASTATIN 20 MG TAB PO SCH (22:25)
[2023-08-05] MEDS: QUEtiapine FUMARATE 25 MG TAB PO SCH (22:25)
[2023-08-05 22:55] VITALS: O2SAT 94
[2023-08-06] VITALS (8 sets, daily range): BP systolic 108–141; BP diastolic 65–95; PULSE 65–90; RESP 18–22; TEMP 98.1–98.4; O2SAT 92–99
[2023-08-06] MEDS: ASPirin 81 mg TAB PO SCH (09:39)
[2023-08-06] MEDS: CARVEDILOL 3.125 MG TAB PO SCH ×2 (09:40→21:53)
[2023-08-06] MEDS: CLOPIDOGREL BISULFATE 75 MG TAB PO SCH (09:40)
[2023-08-06] MEDS: levETIRAcetam 500 mg/100ml 100 ML IV SCH ×2 (10:21→21:56)
[2023-08-06] MEDS: ACCU-CHEK COMFORT CURVE STRIP VI SCH ×3 (12:20→21:57)
[2023-08-06] MEDS: QUEtiapine FUMARATE 25 MG TAB PO SCH ×2 (12:26→21:51)
[2023-08-06] MEDS: SODIUM CHLOR 0.9% PF (SALINE LOCK) 10ML VIAL/SYR IV SCH ×3 (17:47→21:58)
[2023-08-06 18:36] LABS: Amphetamine Screen, Urine Neg (NEGATIVE); Barbiturate Scree,Urine Neg (NEGATIVE); Benzodiazephine Screen, Urine Neg (NEGATIVE); Cannabinoid Screen, Urine Neg (NEGATIVE); Cocaine Screen, Urine Neg (NEGATIVE); Opiate Scree,Urine Neg (NEGATIVE); Phencyclidine Screen, Urine Neg (NEGATIVE)
[2023-08-06] MEDS: ATORVASTATIN 20 MG TAB PO SCH (21:51)
[2023-08-06] MEDS: InsuLIN REG 1unit/0.01ml Soln (100units/ml) SC SCH (21:57)
[2023-08-07] VITALS (12 sets, daily range): BP systolic 117–144; BP diastolic 71–97; PULSE 60–78; RESP 12–18; TEMP 97.6–98.5; O2SAT 95–100
[2023-08-07] MEDS: NITROGLYCERIN 0.4 MG SL TAB SL PRN ×3 (01:45→01:58)
[2023-08-07] MEDS: MORPHINE SULFATE INJ 2 MG/ml SYRG IV PRN ×2 (02:06→06:00)
[2023-08-07] MEDS: ACCU-CHEK COMFORT CURVE STRIP VI SCH ×4 (06:00→22:08)
[2023-08-07] MEDS: InsuLIN REG 1unit/0.01ml Soln (100units/ml) SC SCH ×4 (06:00→22:13)
[2023-08-07] MEDS: SODIUM CHLOR 0.9% PF (SALINE LOCK) 10ML VIAL/SYR IV SCH ×3 (06:00→22:13)
[2023-08-07 06:20] LABS: Chloride 106 mmol/L (98-107); Potassium 4.4 mmol/L (3.5-5.1); Sodium 140 mmol/L (136-145)
[2023-08-07 06:22] LABS: Anion Gap 8 (5-15); Calcium 9.1 mg/dL (8.5-10.1); Carbon Dioxide 26 mmol/L (20-30)
[2023-08-07 06:26] LABS: Glucose 95 mg/dL (74-106)
[2023-08-07 06:27] LABS: Blood Urea Nitrogen 14 mg/dL (9-23)
[2023-08-07] MEDS ORDERED: ADENOSINE 107 MG in GIVE UN-DILUTED 0 ML IV STA (08:28)
[2023-08-07] MEDS: ASPirin 81 mg TAB PO SCH (09:38)
[2023-08-07] MEDS: levETIRAcetam 500 mg/100ml 100 ML IV SCH ×2 (09:38→23:46)
[2023-08-07] MEDS: QUEtiapine FUMARATE 25 MG TAB PO SCH ×2 (09:38→22:00)
[2023-08-07] MEDS: CLOPIDOGREL BISULFATE 75 MG TAB PO SCH (09:38)
[2023-08-07] MEDS: CARVEDILOL 3.125 MG TAB PO SCH ×2 (09:39→22:07)
[2023-08-07] MEDS ORDERED: SODIUM CHLORIDE 0.9% 1,000 ML IV ONE (11:30)
[2023-08-07 13:27] LABS: Basophils # (auto) 0 10 ^3/uL (0-0.2); Basophils % (auto) 0.5 % (0.0-2.0); Eosinophils # (auto) 0.2 10 ^3/uL (0-0.8); Hematocrit 42.3 % (41.0-53.0); Hemoglobin 14.2 g/dL (13.5-17.5); Mean Corpuscular Hemoglobin 31.2 pg (28.0-32.0); Mean Corpuscular Hgb Conc. 33.5 g/dL (32.0-36.0); Mean Corpuscular Volume 93.1 fL (80.0-100.0); Monocytes # (auto) 0.5 10 ^3/uL (0-1.3); Monocytes % (auto) 7.2 % (0.0-12.0); Neutrophils # (auto) 4.5 10 ^3/uL (1.6-8.6); Neutrophils % (auto) 62.3 % (37.0-80.0); Nucleated Red Blood Cells % 0.1 %; Red Blood Cells 4.55 10^6/uL (4.5-5.90); Red Cell Distribution Width 13.4 % (11.8-14.3); White Blood Cell 7.3 10^3/uL (4.4-10.8)
[2023-08-07 16:41] LABS: INR 1.09 (0.9-1.15); Partial Thromboplastin Time 26.1 SEC (24.5-34.5); Prothrombin Time 11.4 sec (9.3-11.8)
[2023-08-07] MEDS ORDERED: ANGIOMAX 250 MG VIAL IV ONE (17:03)
[2023-08-07] MEDS ORDERED: VERAPAMIL 2.5MG/ML INJ 2ML VIAL IV ONE (17:03)
[2023-08-07] MEDS ORDERED: HEPARIN SODIUM (PORCINE) 5000 UNITS/ML 1ML VIAL ONE (17:03)
[2023-08-07] MEDS ORDERED: SODIUM CHL 0.9% 0 ML ONE (17:04)
[2023-08-07] MEDS ORDERED: MIDAZOLAM HCL 2MG/2ML 2ml VIAL (1mg/ml) ONE (17:04)
[2023-08-07] MEDS ORDERED: LIDOCAINE 2%HCL (LOCAL ANESTH.) INJ 20ML MDV ONE (17:04)
[2023-08-07] MEDS ORDERED: fentaNYL CITRATE 100 MCG/2 ML VL ONE (17:04)
[2023-08-07] MEDS ORDERED: IODIXANOL 320MG/ML 100ML BTL IV ONE (17:11)
[2023-08-07] MEDS ORDERED: methylPREDNISolone SOD SUCC 125 MG/2 ML VL ONE (17:29)
[2023-08-07] MEDS: ATORVASTATIN 20 MG TAB PO SCH (22:08)
[2023-08-08] MEDS: MORPHINE SULFATE INJ 2 MG/ml SYRG IV PRN (00:38)
[2023-08-08 01:03] VITALS: BP 145/86; PULSE 89; RESP 17; O2SAT 99
[2023-08-08 05:00] VITALS: BP 134/82; PULSE 69; RESP 16; TEMP 98.2; O2SAT 94
[2023-08-08] MEDS: ACCU-CHEK COMFORT CURVE STRIP VI SCH (06:11)
[2023-08-08] MEDS: SODIUM CHLOR 0.9% PF (SALINE LOCK) 10ML VIAL/SYR IV SCH (06:11)
[2023-08-08] MEDS: InsuLIN REG 1unit/0.01ml Soln (100units/ml) SC SCH (06:17)
[2023-08-08 06:40] LABS: Basophils # (auto) 0 10 ^3/uL (0-0.2); Eosinophils # (auto) 0 10 ^3/uL (0-0.8); Eosinophils % (auto) 0.1 % (0.0-7.0); Hematocrit 49.5 % (41.0-53.0); Hemoglobin 15.8 g/dL (13.5-17.5); Lymphocytes # (auto) 1.3 10 ^3/uL (0.4-5.4); Lymphocytes % (auto) 10.6 % (10.0-50.0); Mean Corpuscular Hemoglobin 31.2 pg (28.0-32.0); Mean Corpuscular Hgb Conc. 31.9 g/dL (32.0-36.0); Mean Corpuscular Volume 97.6 fL (80.0-100.0); Monocytes # (auto) 0.3 10 ^3/uL (0-1.3); Monocytes % (auto) 2.2 % (0.0-12.0); Neutrophils # (auto) 10.8 10 ^3/uL (1.6-8.6); Neutrophils % (auto) 87.1 % (37.0-80.0); Nucleated Red Blood Cells % 0.2 %; Red Blood Cells 5.07 10^6/uL (4.5-5.90); Red Cell Distribution Width 13.9 % (11.8-14.3); White Blood Cell 12.5 10^3/uL (4.4-10.8)
[2023-08-08 06:42] LABS: Chloride 107 mmol/L (98-107); Potassium 4.7 mmol/L (3.5-5.1)
[2023-08-08 06:43] LABS: Anion Gap 7 (5-15); Calcium 9.4 mg/dL (8.7-10.4); Carbon Dioxide 20 mmol/L (20-30); Sodium 134 mmol/L (136-145)
[2023-08-08 06:48] LABS: BUN/Creatinine Ratio 8.1 (10.0-20.0); Blood Urea Nitrogen 11 mg/dL (9-23); Glucose 124 mg/dL (74-106)
[2023-08-08 08:00] VITALS: PULSE 90
[2023-08-08 09:00] VITALS: BP 122/77; PULSE 87; RESP 19; TEMP 98; O2SAT 91
[2023-08-08] MEDS: ASPirin 81 mg TAB PO SCH (10:00)
[2023-08-08] MEDS: QUEtiapine FUMARATE 25 MG TAB PO SCH (10:00)
[2023-08-08] MEDS: CARVEDILOL 3.125 MG TAB PO SCH (10:00)
[2023-08-08] MEDS: CLOPIDOGREL BISULFATE 75 MG TAB PO SCH (10:00)
[2023-08-08] MEDS: levETIRAcetam 500 mg/100ml 100 ML IV SCH (10:00)
[2023-08-08 14:34] LABS: Urine Bacteria FEW /hpf (None Seen); Urine Blood Negative /uL (Negative); Urine Clarity Clear (Clear); Urine Color Yellow (Yellow); Urine Protein, UAD TRACE (Negative); Urine Urobilinogen Normal (Negative); Urine WBC <1 /hpf (0 - 3); Urine pH 6.5 (5.0-8.0)
== END 2023-08-08 11:22 | disposition left against medical advice (07) | DRG 286 ==
LOC: ER 18:32 → TELE 23:32 → TELE-WESTW 08-05 17:55
PROVIDERS: ADMIT Nurse Practitioner Family; ATTEND Family Medicine
PROC: B211YZZ Fluoroscopy of Multiple Coronary Arteries using Other Contrast (ICD-10-PCS; principal; 2023-08-07)
PROC: 4A023N7 Measurement of Cardiac Sampling and Pressure, Left Heart, Percutaneous Approach (ICD-10-PCS; 2023-08-07)
DX: I25.41 Coronary artery aneurysm (principal); I50.23 Acute on chronic systolic (congestive) heart failure; I25.110 Atherosclerotic heart disease of native coronary artery with unstable angina pectoris; I13.0 Hypertensive heart and chronic kidney disease with heart failure and stage 1 through stage 4 chronic kidney disease, or unspecified chronic kidney disease; Z68.41 Body mass index [BMI] 40.0-44.9, adult; N17.9 Acute kidney failure, unspecified; G91.9 Hydrocephalus, unspecified; I48.91 Unspecified atrial fibrillation; E78.5 Hyperlipidemia, unspecified; N18.31 Chronic kidney disease, stage 3a; G40.909 Epilepsy, unspecified, not intractable, without status epilepticus; D72.829 Elevated white blood cell count, unspecified; Z53.29 Procedure and treatment not carried out because of patient's decision for other reasons; E11.22 Type 2 diabetes mellitus with diabetic chronic kidney disease; E66.01 Morbid (severe) obesity due to excess calories; Z91.013 Allergy to seafood; Z88.5 Allergy status to narcotic agent; Z88.2 Allergy status to sulfonamides; Z88.8 Allergy status to other drugs, medicaments and biological substances; Z79.899 Other long term (current) drug therapy; Z82.49 Family history of ischemic heart disease and other diseases of the circulatory system; Z98.2 Presence of cerebrospinal fluid drainage device
CPT/HCPCS: 36415; 70450; 71045; 71046; 78452; 80048; 80053; 80061; 80307; 81001; 82962; 83735; 83880; 84443; 84484; 85025; 85379; 85610; 85730; 93005; 93017; 93306; 93458; 94640; 99152; G0378; J0153; J1815; J2250; J2405; Q9967

== ENCOUNTER 2023-08-12 02:41 | Emergency (ER) | payer MEDICARE, MEDICAID ==
[~2023-08-12] VITALS: Ht 167.6 cm; Wt 110.0 kg
[2023-08-12 03:14] VITALS: BP 138/88; PULSE 91; RESP 19; O2SAT 98
== END 2023-08-12 03:46 | disposition left against medical advice (07) ==
LOC: ER 02:41 → EDBD 02:41 → ER 03:46
DX: R07.9 Chest pain, unspecified (principal); E11.22 Type 2 diabetes mellitus with diabetic chronic kidney disease; I13.0 Hypertensive heart and chronic kidney disease with heart failure and stage 1 through stage 4 chronic kidney disease, or unspecified chronic kidney disease; N18.9 Chronic kidney disease, unspecified; I50.9 Heart failure, unspecified; I25.2 Old myocardial infarction; Z91.013 Allergy to seafood; Z88.6 Allergy status to analgesic agent
CPT/HCPCS: 93005

== ENCOUNTER 2023-09-21 18:45 | Emergency (ER) | payer MEDICARE, OTHER ==
[~2023-09-21] VITALS: Ht 167.6 cm; Wt 113.8 kg
[2023-09-21 20:04] VITALS: BP 133/94; PULSE 111; RESP 20; O2SAT 95
[2023-09-21] MEDS ORDERED: SODIUM CHLORIDE 0.9% 1,000 ML IV ONE (20:15)
[2023-09-21 20:18] LABS: Urine Bacteria NONE SEEN /hpf (None Seen); Urine Blood Negative /uL (Negative); Urine Clarity HAZY (Clear); Urine Color Yellow (Yellow); Urine Hyaline Cast FEW /lpf (0 - 2); Urine Mucus FEW (None Seen); Urine Protein, UAD 3+ (Negative); Urine Specific Gravity 1.032 (1.001-1.035); Urine WBC 10 /hpf (0 - 3); Urine pH 5.5 (5.0-8.0)
== END 2023-09-21 22:44 | disposition left against medical advice (07) ==
LOC: ER 18:45
DX: R10.33 Periumbilical pain (principal); Z53.21 Procedure and treatment not carried out due to patient leaving prior to being seen by health care provider
CPT/HCPCS: 81001

== ENCOUNTER 2023-10-02 20:29 | Emergency (ER) | payer MEDICARE, MEDICAID ==
[~2023-10-02] VITALS: Ht 167.6 cm; Wt 95.0 kg
[2023-10-02] MEDS ORDERED: KETOROLAC TROMETH 30 MG/ML 1ML VIAL IM ONE (23:30)
[2023-10-03 00:47] LABS: Chloride 108 mmol/L (98-107); Potassium 4.2 mmol/L (3.5-5.1); Sodium 139 mmol/L (136-145)
[2023-10-03 00:48] LABS: Anion Gap 7 (5-15); Calcium 9.1 mg/dL (8.7-10.4); Carbon Dioxide 24 mmol/L (20-30)
[2023-10-03 00:53] LABS: BUN/Creatinine Ratio 12.3 (10.0-20.0); Blood Urea Nitrogen 16 mg/dL (9-23); Glucose 91 mg/dL (74-106)
[2023-10-03 01:23] VITALS: BP 133/92; PULSE 89; RESP 16; TEMP 98.2; O2SAT 100
[2023-10-03 01:33] LABS: Basophils # (auto) 0 10 ^3/uL (0-0.2); Basophils % (auto) 0.3 % (0.0-2.0); Eosinophils # (auto) 0.1 10 ^3/uL (0-0.8); Eosinophils % (auto) 1.1 % (0.0-7.0); Hematocrit 45.8 % (41.0-53.0); Hemoglobin 15.2 g/dL (13.5-17.5); Lymphocytes # (auto) 2.7 10 ^3/uL (0.4-5.4); Lymphocytes % (auto) 26.2 % (10.0-50.0); Mean Corpuscular Hemoglobin 32.2 pg (28.0-32.0); Mean Corpuscular Hgb Conc. 33.1 g/dL (32.0-36.0); Mean Corpuscular Volume 97.1 fL (80.0-100.0); Monocytes # (auto) 0.7 10 ^3/uL (0-1.3); Monocytes % (auto) 7.2 % (0.0-12.0); Neutrophils # (auto) 6.8 10 ^3/uL (1.6-8.6); Neutrophils % (auto) 65.2 % (37.0-80.0); Red Blood Cells 4.72 10^6/uL (4.5-5.90); Red Cell Distribution Width 14.9 % (11.8-14.3); White Blood Cell 10.4 10^3/uL (4.4-10.8)
== END 2023-10-03 01:18 | disposition home or self-care (01) ==
LOC: ER 20:29
DX: T85.01XA Breakdown (mechanical) of ventricular intracranial (communicating) shunt, initial encounter (principal); N43.3 Hydrocele, unspecified; R51.9 Headache, unspecified; I12.9 Hypertensive chronic kidney disease with stage 1 through stage 4 chronic kidney disease, or unspecified chronic kidney disease; I50.9 Heart failure, unspecified; N18.9 Chronic kidney disease, unspecified; I25.2 Old myocardial infarction; E11.9 Type 2 diabetes mellitus without complications; I48.91 Unspecified atrial fibrillation; Z98.2 Presence of cerebrospinal fluid drainage device; Z85.9 Personal history of malignant neoplasm, unspecified; Z98.890 Other specified postprocedural states; Y92.89 Other specified places as the place of occurrence of the external cause
CPT/HCPCS: 36415; 70450; 71045; 80048; 85025

== ENCOUNTER 2023-11-04 15:52 | Emergency (ER) | payer MEDICARE, MEDICAID ==
[~2023-11-04] VITALS: Ht 167.6 cm; Wt 118.8 kg
[2023-11-04 16:09] VITALS: BP 136/90; PULSE 100; RESP 18; O2SAT 94
[2023-11-04] MEDS: HYDROcodone-ACET 5/325MG TAB PO ONE (18:22)
[2023-11-04] MEDS ORDERED: IBUP-1455 PO (19:06)
[2023-11-04] MEDS ORDERED: CEPH500C PO (19:06)
[2023-11-04] MEDS ORDERED: ACET500T58 PO (19:06)
[2023-11-04] MEDS: CEPHALEXIN 250 MG CAP PO ONE (19:12)
== END 2023-11-04 19:14 | disposition home or self-care (01) ==
LOC: ER 15:52
DX: L03.012 Cellulitis of left finger (principal); I13.0 Hypertensive heart and chronic kidney disease with heart failure and stage 1 through stage 4 chronic kidney disease, or unspecified chronic kidney disease; E11.22 Type 2 diabetes mellitus with diabetic chronic kidney disease; N18.9 Chronic kidney disease, unspecified; I50.9 Heart failure, unspecified; I48.91 Unspecified atrial fibrillation; I25.2 Old myocardial infarction; Z90.49 Acquired absence of other specified parts of digestive tract; Z79.899 Other long term (current) drug therapy; Z79.2 Long term (current) use of antibiotics; Z88.5 Allergy status to narcotic agent; Z88.8 Allergy status to other drugs, medicaments and biological substances; Z91.013 Allergy to seafood
CPT/HCPCS: 20600; 87077; 87186; 87205

== ENCOUNTER 2024-02-19 19:39 | Emergency (ER) | payer MEDICAID, MEDICARE ==
[~2024-02-19] VITALS: Ht 167.6 cm; Wt 106.8 kg
[~2024-02-19 19:39] MED LIST changes: +ACET500T58 PO; +CEPH500C PO; +IBUP-1455 PO; +POTA-36 PO; -POTA10TA51 PO; -ROPI1TAB4 PO; +ROPI1TAB78 PO
[2024-02-19 20:43] LABS: Urine Bacteria None Seen /hpf (None Seen)
[2024-02-19 21:08] LABS: Urine Blood Negative /uL (Negative); Urine Clarity Clear (Clear); Urine Color Light-Yellow (Yellow); Urine Mucus FEW (None Seen); Urine Protein, UAD Negative (Negative); Urine Specific Gravity 1.022 (1.001-1.035); Urine Urobilinogen Normal (Negative); Urine WBC 2 /hpf (0 - 3); Urine pH 5.5 (5.0-9.0)
[2024-02-19 21:12] LABS: Basophils # (auto) 0.1 10 ^3/uL (0-0.2); Basophils % (auto) 0.6 % (0.0-2.0); Eosinophils # (auto) 0.2 10 ^3/uL (0-0.8); Eosinophils % (auto) 2.1 % (0.0-7.0); Hematocrit 44.3 % (41.0-53.0); Hemoglobin 15.2 g/dL (13.5-17.5); Lymphocytes # (auto) 2.8 10 ^3/uL (0.4-5.4); Lymphocytes % (auto) 25.5 % (10.0-50.0); Mean Corpuscular Hgb Conc. 34.3 g/dL (32.0-36.0); Mean Corpuscular Volume 93.2 fL (80.0-100.0); Monocytes # (auto) 0.8 10 ^3/uL (0-1.3); Monocytes % (auto) 7.2 % (0.0-12.0); Neutrophils % (auto) 64.6 % (37.0-80.0); Nucleated Red Blood Cells % 0.1 %; Red Blood Cells 4.75 10^6/uL (4.5-5.90); Red Cell Distribution Width 13.6 % (11.8-14.3); White Blood Cell 10.9 10^3/uL (4.4-10.8)
[2024-02-19 21:38] LABS: Alanine Aminotransferase 19 U/L (7-40); Albumin 4.3 g/dL (3.2-4.8); Alkaline Phosphatase 98 U/L (46-116); Anion Gap 7 (5-15); Aspartate Aminotransferase 11 U/L (13-40); BUN/Creatinine Ratio 11.9 (10.0-20.0); Bilirubin, Total 0.5 mg/dL (0.2-1.0); Blood Urea Nitrogen 14 mg/dL (9-23); Calcium 9.9 mg/dL (8.7-10.4); Carbon Dioxide 24 mmol/L (20-30); Chloride 108 mmol/L (98-107); Glucose 98 mg/dL (74-106); Potassium 4.4 mmol/L (3.5-5.1); Sodium 139 mmol/L (136-145); Total Protein 7.7 g/dL (5.7-8.2)
[2024-02-19] MEDS ORDERED: FURO1TAB31 PO (22:49)
[2024-02-19 23:27] VITALS: BP 152/100; PULSE 86; RESP 18; O2SAT 99
== END 2024-02-19 23:29 | disposition home or self-care (01) ==
LOC: ER 19:39
DX: E11.22 Type 2 diabetes mellitus with diabetic chronic kidney disease (principal); I13.0 Hypertensive heart and chronic kidney disease with heart failure and stage 1 through stage 4 chronic kidney disease, or unspecified chronic kidney disease; N18.9 Chronic kidney disease, unspecified; I50.89 Other heart failure; Z91.013 Allergy to seafood; Z88.6 Allergy status to analgesic agent
CPT/HCPCS: 36415; 71045; 80053; 81001; 83880; 85025; 93005

== ENCOUNTER 2024-04-06 23:20 | Inpatient (IN) | payer MEDICARE ==
[~2024-04-06] VITALS: Ht 167.6 cm; Wt 117.8 kg
[~2024-04-06 23:20] MED LIST changes: +FURO1TAB31 PO
[2024-04-06 23:40] LABS: Basophils # (auto) 0.1 10 ^3/uL (0-0.2); Basophils % (auto) 0.5 % (0.0-2.0); Eosinophils # (auto) 0.1 10 ^3/uL (0-0.8); Eosinophils % (auto) 1.1 % (0.0-7.0); Hematocrit 45.2 % (41.0-53.0); Hemoglobin 15.4 g/dL (13.5-17.5); Lymphocytes # (auto) 3.4 10 ^3/uL (0.4-5.4); Lymphocytes % (auto) 30.8 % (10.0-50.0); Mean Corpuscular Hemoglobin 32.1 pg (28.0-32.0); Mean Corpuscular Volume 94.3 fL (80.0-100.0); Monocytes # (auto) 0.6 10 ^3/uL (0-1.3); Monocytes % (auto) 5.9 % (0.0-12.0); Neutrophils # (auto) 6.8 10 ^3/uL (1.6-8.6); Neutrophils % (auto) 61.7 % (37.0-80.0); Nucleated Red Blood Cells % 0.1 %; Red Cell Distribution Width 13.8 % (11.8-14.3)
[2024-04-06 23:54] LABS: INR 1.05 (0.9-1.15); Partial Thromboplastin Time 26.6 SEC (24.5-34.5); Prothrombin Time 11.1 sec (9.3-11.8)
[2024-04-07] VITALS (8 sets, daily range): BP systolic 113–175; BP diastolic 75–116; PULSE 70–92; RESP 12–18; TEMP 97.4–98.4; O2SAT 94–100
[2024-04-07 00:22] LABS: Alanine Aminotransferase 21 U/L (7-40); Albumin 4.2 g/dL (3.2-4.8); Alkaline Phosphatase 97 U/L (46-116); Anion Gap 9 (5-15); Aspartate Aminotransferase 12 U/L (13-40); BUN/Creatinine Ratio 6.6 (10.0-20.0); Blood Urea Nitrogen 8 mg/dL (9-23); Carbon Dioxide 23 mmol/L (20-30); Chloride 108 mmol/L (98-107); Glucose 112 mg/dL (74-106); Potassium 3.6 mmol/L (3.5-5.1); Sodium 140 mmol/L (136-145)
[2024-04-07 00:23] LABS: Bilirubin, Total 0.6 mg/dL (0.2-1.0); Total Protein 7.6 g/dL (5.7-8.2)
[2024-04-07] MEDS ORDERED: hydrALAZINE HCL 20 MG/ML VL IV PRN (02:00)
[2024-04-07] MEDS ORDERED: DOCUSATE SOD 100 MG CAP PO PRN (02:00)
[2024-04-07] MEDS ORDERED: ONDANSETRON HCL 4 MG/2 ML VIAL IV PRN (02:00)
[2024-04-07] MEDS ORDERED: ACETAMINOPHEN 325 MG TAB PO PRN (02:00)
[2024-04-07] MEDS ORDERED: MORPHINE SULFATE INJ 2 MG/ml SYRG IV PRN (03:30)
[2024-04-07 05:18] LABS: Basophils # (auto) 0 10 ^3/uL (0-0.2); Basophils % (auto) 0.4 % (0.0-2.0); Eosinophils # (auto) 0.1 10 ^3/uL (0-0.8); Hematocrit 43.4 % (41.0-53.0); Hemoglobin 15.1 g/dL (13.5-17.5); Lymphocytes # (auto) 2.7 10 ^3/uL (0.4-5.4); Lymphocytes % (auto) 23.4 % (10.0-50.0); Mean Corpuscular Hemoglobin 32.9 pg (28.0-32.0); Mean Corpuscular Hgb Conc. 34.9 g/dL (32.0-36.0); Mean Corpuscular Volume 94.2 fL (80.0-100.0); Monocytes # (auto) 0.6 10 ^3/uL (0-1.3); Monocytes % (auto) 5.4 % (0.0-12.0); Neutrophils # (auto) 8.2 10 ^3/uL (1.6-8.6); Neutrophils % (auto) 69.8 % (37.0-80.0); Red Blood Cells 4.61 10^6/uL (4.5-5.90); Red Cell Distribution Width 13.6 % (11.8-14.3); White Blood Cell 11.7 10^3/uL (4.4-10.8)
[2024-04-07 05:33] LABS: Alanine Aminotransferase 19 U/L (7-40); Albumin 4.3 g/dL (3.2-4.8); Alkaline Phosphatase 95 U/L (46-116); Anion Gap 8 (5-15); Aspartate Aminotransferase 10 U/L (13-40); BUN/Creatinine Ratio 8.9 (10.0-20.0); Bilirubin, Total 0.7 mg/dL (0.2-1.0); Blood Urea Nitrogen 11 mg/dL (9-23); Calcium 9.3 mg/dL (8.7-10.4); Carbon Dioxide 26 mmol/L (20-30); Chloride 107 mmol/L (98-107); Glucose 94 mg/dL (74-106); Potassium 4.3 mmol/L (3.5-5.1); Sodium 141 mmol/L (136-145); Total Protein 7.6 g/dL (5.7-8.2)
[2024-04-07 05:43] LABS: Urine Bacteria FEW /hpf (None Seen); Urine Blood Negative /uL (Negative); Urine Clarity Clear (Clear); Urine Color Yellow (Yellow); Urine Mucus FEW (None Seen); Urine Protein, UAD TRACE (Negative); Urine Specific Gravity 1.034 (1.001-1.035); Urine Urobilinogen Normal (Negative); Urine WBC 3 /hpf (0 - 3); Urine pH 5.5 (5.0-9.0)
[2024-04-07] MEDS: SODIUM CHLOR 0.9% PF (SALINE LOCK) 10ML VIAL/SYR IV SCH (06:04)
[2024-04-07] MEDS: CARVEDILOL 3.125 MG TAB PO SCH (09:16)
[2024-04-07] MEDS: NITROGLYCERIN 0.4 MG SL TAB SL PRN (09:16)
[2024-04-07] MEDS: ASPirin 81 mg TAB PO SCH (09:16)
[2024-04-07] MEDS: levETIRAcetam 500 mg/100ml 100 ML IV SCH (09:45)
[2024-04-07] MEDS ORDERED: TRAZ1TAB12 PO (10:10)
[2024-04-07] MEDS ORDERED: PANT1INJ3 PO (10:10)
[2024-04-07] MEDS ORDERED: MEMA1TAB3 PO (10:11)
[2024-04-07] MEDS ORDERED: FURO40TA4 PO (10:28)
[2024-04-07] MEDS ORDERED: LORA-1123 PO (10:28)
[2024-04-07] MEDS ORDERED: TOPI100T68 PO (10:28)
[2024-04-07 12:25] LABS: Amphetamine Screen, Urine Neg (NEGATIVE); Barbiturate Scree,Urine Neg (NEGATIVE); Benzodiazephine Screen, Urine Neg (NEGATIVE); Cannabinoid Screen, Urine Neg (NEGATIVE); Cocaine Screen, Urine Neg (NEGATIVE); Opiate Scree,Urine Neg (NEGATIVE); Phencyclidine Screen, Urine Neg (NEGATIVE)
[2024-04-07] MEDS ORDERED: AMLO1TAB22 PO (15:07)
[2024-04-07] MEDS ORDERED: BUPR-346 PO (15:20)
[2024-04-07] MEDS ORDERED: ASCO500C49 PO (15:20)
[2024-04-07] MEDS ORDERED: CYCL-839 PO (15:20)
[2024-04-07] MEDS ORDERED: PREG200C19 PO (15:20)
[2024-04-07] MEDS ORDERED: LEVE100012 PO (15:20)
[2024-04-07] MEDS ORDERED: PROP1TAB51 PO (15:20)
[2024-04-07] MEDS ORDERED: METO-289 PO (15:20)
[2024-04-07] MEDS: levETIRAcetam 500 MG/5ML ORAL SOLN UD PO SCH (21:18)
[2024-04-07] MEDS: QUEtiapine FUMARATE 25 MG TAB PO SCH (21:22)
[2024-04-07] MEDS: traZODone HCL 50 MG TAB PO SCH (21:22)
[2024-04-07] MEDS: PROPRANOLOL HCL 20 MG TAB PO SCH (21:25)
[2024-04-08] VITALS (7 sets, daily range): BP systolic 98–112; BP diastolic 66–77; PULSE 63–80; RESP 12–18; TEMP 97.5–98.6; O2SAT 93–97
[2024-04-08 07:13] LABS: Basophils # (auto) 0 10 ^3/uL (0-0.2); Basophils % (auto) 0.4 % (0.0-2.0); Eosinophils # (auto) 0.3 10 ^3/uL (0-0.8); Eosinophils % (auto) 3.4 % (0.0-7.0); Hematocrit 44.5 % (41.0-53.0); Hemoglobin 15.2 g/dL (13.5-17.5); Lymphocytes # (auto) 1.5 10 ^3/uL (0.4-5.4); Lymphocytes % (auto) 17.2 % (10.0-50.0); Mean Corpuscular Hemoglobin 32.2 pg (28.0-32.0); Mean Corpuscular Volume 94.7 fL (80.0-100.0); Monocytes # (auto) 0.6 10 ^3/uL (0-1.3); Monocytes % (auto) 7.1 % (0.0-12.0); Neutrophils # (auto) 6.3 10 ^3/uL (1.6-8.6); Neutrophils % (auto) 71.9 % (37.0-80.0); Nucleated Red Blood Cells % 0.1 %; Red Cell Distribution Width 13.7 % (11.8-14.3); White Blood Cell 8.8 10^3/uL (4.4-10.8)
[2024-04-08 07:39] LABS: Alanine Aminotransferase 18 U/L (7-40); Albumin 3.8 g/dL (3.2-4.8); Alkaline Phosphatase 97 U/L (46-116); Anion Gap 7 (5-15); Aspartate Aminotransferase 10 U/L (13-40); BUN/Creatinine Ratio 9.5 (10.0-20.0); Blood Urea Nitrogen 9 mg/dL (9-23); Calcium 9.2 mg/dL (8.7-10.4); Carbon Dioxide 23 mmol/L (20-30); Chloride 110 mmol/L (98-107); Glucose 89 mg/dL (74-106); Potassium 4.3 mmol/L (3.5-5.1); Sodium 140 mmol/L (136-145); Total Protein 6.7 g/dL (5.7-8.2)
[2024-04-08] MEDS: DICYCLOMINE HCL 10 MG CAP PO SCH (09:27)
[2024-04-08] MEDS: FUROSEMIDE 20 MG TAB PO SCH (09:28)
[2024-04-08] MEDS: POTASSIUM CHL 10 Meq TABLET PO SCH (09:28)
[2024-04-08] MEDS: TOPIRAMATE 25 MG TAB PO SCH (09:28)
[2024-04-08] MEDS: amLODIPine BESYLATE 5 MG TAB PO SCH (09:29)
[2024-04-09] VITALS (9 sets, daily range): BP systolic 104–114; BP diastolic 67–73; PULSE 65–75; RESP 16–20; TEMP 97.7–98.6; O2SAT 92–96
[2024-04-09 21:27] LABS: COVID19 ANTIGEN SOFIA FIA NEGATIVE (NEGATIVE)
[2024-04-10 01:00] VITALS: BP 104/76; PULSE 72; RESP 20; TEMP 98; O2SAT 93
[2024-04-10 05:00] VITALS: BP 122/77; PULSE 64; RESP 20; TEMP 97.9; O2SAT 96
== END 2024-04-10 07:18 | disposition left against medical advice (07) | DRG 291 ==
LOC: ER 23:20 → TELE 04-07 03:26 → TELE-WESTW 04-07 07:40
PROVIDERS: ADMIT Nurse Practitioner Family; ATTEND Family Medicine
DX: I13.0 Hypertensive heart and chronic kidney disease with heart failure and stage 1 through stage 4 chronic kidney disease, or unspecified chronic kidney disease (principal); I50.33 Acute on chronic diastolic (congestive) heart failure; C95.91 Leukemia, unspecified, in remission; Z68.41 Body mass index [BMI] 40.0-44.9, adult; I48.91 Unspecified atrial fibrillation; E11.22 Type 2 diabetes mellitus with diabetic chronic kidney disease; F32.A Depression, unspecified; R56.9 Unspecified convulsions; N18.9 Chronic kidney disease, unspecified; Z20.822 Contact with and (suspected) exposure to COVID-19; Z53.29 Procedure and treatment not carried out because of patient's decision for other reasons; Z88.8 Allergy status to other drugs, medicaments and biological substances; Z88.5 Allergy status to narcotic agent; Z91.013 Allergy to seafood; Z79.899 Other long term (current) drug therapy; Z79.1 Long term (current) use of non-steroidal anti-inflammatories (NSAID); Z82.49 Family history of ischemic heart disease and other diseases of the circulatory system; I25.2 Old myocardial infarction; Z98.2 Presence of cerebrospinal fluid drainage device; Z91.199 Patient's noncompliance with other medical treatment and regimen due to unspecified reason; I16.0 Hypertensive urgency
CPT/HCPCS: 36415; 80053; 80307; 81001; 83735; 83880; 84484; 85025; 85610; 85730; 87426; 93005; 97110; 97116; 97163; 97530; G0378

== ENCOUNTER 2024-07-13 16:28 | Emergency (ER) | payer MEDICARE ==
[~2024-07-13] VITALS: Ht 167.6 cm; Wt 127.1 kg
[~2024-07-13 16:28] MED LIST changes: -ACET500T58 PO; +AMLO1TAB22 PO; -AMLO1TAB23 PO; +ASCO500C49 PO; +BUPR-346 PO; -CEPH500C PO; +CYCL-839 PO; -FURO1TAB31 PO; -FURO1TAB33 PO; +FURO40TA4 PO; -IBUP-1455 PO; -KEP500T PO; +LEVE100012 PO; +LORA-1123 PO; +MEMA1TAB3 PO; +METO-289 PO; +PANT1INJ3 PO; +PREG200C19 PO; +PROP1TAB51 PO; -PROP1TAB53 PO; +TOPI100T68 PO; +TRAZ1TAB12 PO
--- NOTE | 2024-07-13 16:42 | ED.PDOC ---
Eye-HPI HPI Comments 53 y.o male presents to the ED for an evaluation of left eye vision changes x 2 weeks. Patient reports he was seen at [facility], sent to the ED to rule out retinal detachment. Patient describes seeing a "black curtain" on the left side of the eye. No redness, pain, or discharge reported. Patient also denies any recent trauma or total blindness. Time Seen by MD: 16:35 Primary Care Provider: OUT OF STATE Reviewed Notes: Nurses Notes, Medications, Allergies Allergies: Coded Allergies: Shellfish Allergy (Verified Allergy, Mild, 12/14/21) Codeine (Verified Allergy, Unknown, 02/07/22) Lorazepam (Verified Allergy, Unknown, 04/07/24) Metoclopramide (Verified Allergy, Unknown, 12/08/21) Perphenazine (Verified Allergy, Unknown, 04/07/24) Prochlorperazine (Verified Allergy, Unknown, 12/08/21) Promethazine (Verified Allergy, Unknown, 12/08/21) Home Meds Active Scripts Potassium Chloride (POTASSIUM CHLORIDE CR) 10 Meq Tb, 1 TAB PO DAILY, #30 TAB 5 Refills Prov:JUANA EMANUEL MD 11/08/22 Quetiapine Fumerate (QUETIAPINE FUMARATE) 25 Mg Tab, 50 MG PO BID for 30 Days, #120 TAB 1 Refill Prov:LILIAN REYES MD 02/16/22 Reported Medications Propranolol HCl (Propranolol Hydrochloride) 10 Mg Tab, 10 MG PO BID, TAB 04/07/24 Pregabalin (Lyrica) 200 Mg Cap, 1 CAP PO BID, #60 CAP 04/07/24 Cyclobenzaprine Hcl (Cyclobenzaprine Hcl) 10 Mg Tab, 10 MG PO TID PRN for FOR MUSCLE SPASM, TAB 04/07/24 Metoprolol Succinate (Metoprolol Succinate Er) 50 Mg Tab, 100 MG PO DAILY for 30 Days, MG 04/07/24 Levetiracetam (Keppra) 1,000 Mg Tab, 1 TAB PO BID, #60 TAB 5 Refills 04/07/24 Bupropion Hcl (Bupropion Hcl) 100 Mg Tab, 150 MG PO QAM for 30 Days, MG 04/07/24 Ascorbic Acid (VITAMIN C) 500 Mg Cap, 500 MG PO DAILY, CAP 04/07/24 Amlodipine Besylate (Amlodipine Besylate) 5 Mg Tab, 5 MG PO QAM for 30 Days, MG 04/07/24 Lorazepam (Lorazepam) 1 Mg Tab, 1 MG PO PRN PRN for ANXIETY, TAB 04/07/24 Furosemide (Furosemide) 40 Mg Tab, 40 MG PO DAILY for 30 Days 04/07/24 Topiramate (Topiramate) 100 Mg Tab, 100 MG PO for 30 Days, MG 04/07/24 Memantine Hydrochloride (Memantine HCl) 5 Mg Tab, 5 MG PO BID, TAB 04/07/24 Pantoprazole Sodium (PANTOPRAZOLE SODIUM) 40 Mg Inj, 40 MG PO DAILY, INJ 04/07/24 Trazodone Hcl (Trazodone Hcl) 150 Mg Tab, 1 TAB PO QPM, #30 TAB 1 Refill 04/07/24 Dicyclomine Hcl (Dicyclomine Hcl) 20 Mg Tab, 20 MG PO DAILY 12/15/21 Ropinirole Hydrochloride (Ropinirole Hcl) 1 Mg Tab, 1 MG PO QHSP 12/15/21 Information Source: Patient, Relative (Mother) Mode of Arrival: Ambulatory Timing: Weeks Duration: Since onset Prehospital treatment: None Eye Location: Left Onset: Spontaneous History of: None Associated signs and symptoms: Other Past Medical History PAST MEDICAL HISTORY: AFIB, Cancer, CHF, CKF, DM, HTN, [place], Seizures Surgical History: Appendectomy Family History Family History: Reviewed,noncontributory to illness Social History Smoker: Non-Smoker Alcohol: Denies ETOH Use Drugs: Denies Drug Use Lives In: Home Constitutional: denies: chills, diaphoresis, fatigue, fever, malaise, sweats, weakness, others EENTM: reports: blurred vision (left eye ); denies: double vision, ear bleeding, ear discharge, ear drainage, ear pain, ear ringing, eye pain, eye redness, hearing loss, mouth pain, mouth swelling, nasal discharge, nose bleeding, nose congestion, nose pain, photophobia, tearing, throat pain, throat swelling, voice changes, others Respiratory: denies: cough, hemoptysis, orthopnea, SOB at rest, shortness of breath, SOB with excertion, stridor, wheezing, others Cardiovascular: denies: chest pain, dizzy spells, diaphoresis, Dyspnea on exertion, edema, irregular heart beat, left arm pain, lightheadedness, palpitations, PND, syncope, others Gastrointestinal: denies: abdomen distended, abdominal pain, blood streaked bowels, constipated, diarrhea, dysphagia, difficulty swallowing, hematemesis, melena, nausea, poor appetite, poor fluid intake, rectal bleeding, rectal pain, vomiting, others Genitourinary: denies: burning, dysuria, flank pain, frequency, hematuria, incontinence, penile discharge, penile sore, pain, testicle pain, testicle swelling, urgency, others Neurological: denies: dizziness, fainting, headache, left sided numbness, left sided weakness, numbness, paresthesia, pre-existing deficit, right sided numbness, right sided weakness, seizure, speech problems, tingling, tremors, weakness, others Musculoskeletal: denies: back pain, gout, joint pain, joint swelling, muscle pain, muscle stiffness, neck pain, others Integumetry: denies: bruises, change in color, change in hair/nails, dryness, laceration, lesions, lumps, rash, wounds, others Allergic/Immunocompromised: denies: Difficulty Healing, Frequent Infections, Hives, Itching, others Hematologic/Lymphatic: denies: anemia, blood clots, easy bleeding, easy bruising, swollen glands, others Endocrine: denies: excessive hunger, excessive sweating, excessive thirst, excessive urination, flushing, intolerance to cold, intolerance to heat, unexplained weight gain, unexplained weight loss, others Psychiatric: denies: anxiety, bipolar disorder, depression, hopeless, panic disorder, schizophrenia, sleepless, suicidal, others All Other Systems: Reviewed and Negative Physical Exam General Appearance: Mild Distress (Anxiety due to vision loss), Normal HEENT: Pharynx Normal, TMs Normal, Other (Unremarkable L globe) Neck: Full Range of Motion, Non-Tender, Normal, Normal Inspection Respiratory: Chest Non-Tender, Lungs Clear, No Accessory Muscle Use, No Respiratory Distress, Normal Breath Sounds Cardiovascular: No Edema, No JVD, No Murmur, No Gallop, Normal Peripheral Pulses, Regular Rate/Rhythm Breast Exam: Deferred Gastrointestinal: No Organomegaly, Non Tender, No Pulsatile Mass, Normal Bowel Sounds, Soft Genitalia: Deferred Pelvic: Deferred Rectal: Deferred Extremities: No calf tenderness, Normal capillary refill, Normal inspection, Normal range of motion, Non-tender, No pedal edema 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 Was a procedure done?: No EENT DIFF Eye: Glaucoma, Retinal Artery Occlusion, Retinal Vein Occlusion, Other (Retinal Detachment) X-Ray, Labs, Meds, VS Vital Signs Date Time Temp Pulse Resp B/P (MAP) Pulse Ox O2 Delivery O2 Flow Rate FiO2 07/13/24 17:00 98.9 99 12 139/94 (109) 95 98.9 07/13/24 17:00 99 12 95 Room Air* 0 21 07/13/24 16:47 98.8 111 20 135/98 (110) [address] [address] Ph: [phone] DIAGNOSTIC IMAGING Diagnostic Imaging Report : [id number] Signed PATIENT: MINERVA ARANGO ACCT: [id number] UNIT: [id number] : 1970 LOC: ER ROOM / BED: / AGE / SEX: 53 / M ADM STATUS: REG ER SERVICE 37 ORDERING PHYSICIAN: ERNESTO ORTIZ PAC PROCEDURE(s): OB1CT - ORBITS WO CONTRAST REASON: Poss. L eye retinal detachment ORDER NUMBER(s): [id number], ACCESSION NUMBER(s): [id number] HISTORY: Poss. L eye retinal detachment Comparison: 10/02/2023 TECHNIQUE: Nonenhanced axial images through the facial bones with coronal and sagittal MPR. Radiation Dose Information: CT Dose: CTDI volume is 55.44 mGy. Dose-length product is 533.38 mGy*cm FINDINGS: Mandible: Negative Maxilla: Negative Pterygoid plates: Negative Zygomatic processes: Negative. Zygomatic arches: No fracture Orbits: No areas of increased tissue density. Globes appear symmetrical bilaterally. If retinal detachment is clinical concern consider MRI. Sinuses: Negative Facial swelling: Negative IMPRESSION: 1. No acute facial fractures. 2. Globes appear symmetrical. No areas of increased tissue density in the left globe. If retinal detachment is of clinical concern consider MRI. Radiation optimization: All CT scans at this facility use at least one of these dose optimization techniques: automated exposure control mA and/or kV adjustment per patient size (includes targeted exams where dose is matched to clinical indication) or iterative reconstruction. ATED BY: ZOFIA THOMPSON Jr., DO DICTATED DATE/TIME: 07/13/241715 SIGNED BY: ZOFIA THOMPSON Jr., SIGNED DATE/TIME: 07/13/241715 CC: X-Ray, Labs, Meds, VS Comment Pt. states good response to treatment. All studies performed at the ED today were reviewed by me personally. Imaging studies were unremarkable for any acute intraocular concerns. Pt. needs Ophthalmology eval. Will be D/C'd and will drive himself to [place]. Time of 1ST Reevaluation: 18:14 Reevaluation 1ST: Unchanged Consultation: PCP, Other (Ophthamology) Patient Education/Counseling: Diagnosis, Treatment, Prognosis Family Education/Counseling: Diagnosis, Treatment, No Family Present Departure 1 Departure Time of Disposition: 18:14 Impression: Primary Impression: Vision loss of left eye Disposition: 01 HOME / SELF CARE / HOMELESS Condition: Stable Additional Instructions: Pt. has been advised and states he will go to [place] immediately for evaluation. Discharged With: Self, Relative (Mother) Critical Care Note Critical Care Time?: No Stability Stability form required: No I personally scribed for ERNESTO ORTIZ PAC ([email or web address]) on 07/13/24 at 16:42. Electronically submitted by Caitlin Rebolledo ([facility]). I personally scribed for ERNESTO ORTIZ PAC ([email or web address]) on 07/13/24 at 18:00. Electronically submitted by Yumi Hernandez ([email or web address]). ERNESTO ORTIZ PAC Jul 13, 2024 16:42
[2024-07-13 17:00] VITALS: PULSE 99; RESP 12; TEMP 98.9; O2SAT 95
--- NOTE | 2024-07-13 17:19 | DVH ---
HISTORY: Poss. L eye retinal detachment Comparison: 10/02/2023 TECHNIQUE: Nonenhanced axial images through the facial bones with coronal and sagittal MPR. Radiation Dose Information: CT Dose: CTDI volume is 55.44 mGy. Dose-length product is 533.38 mGy*cm FINDINGS: Mandible: Negative Maxilla: Negative Pterygoid plates: Negative Zygomatic processes: Negative. Zygomatic arches: No fracture Orbits: No areas of increased tissue density. Globes appear symmetrical bilaterally. If retinal deta chment is clinical concern consider MRI. Sinuses: Negative Facial swelling: Negative IMPRESSION: 1. No acute facial fractures. 2. Globes appear symmetrical. No areas of increased tissue density in the left globe. If retinal det achment is of clinical concern consider MRI. Radiation optimization: All CT scans at this facility use at least one of these dose optimization michela hniques: automated exposure control mA and/or kV adjustment per patient size (includes targeted exam s where dose is matched to clinical indication) or iterative reconstruction.
[2024-07-13] MEDS: predniSONE 20 MG TAB PO ONE (18:11)
[2024-07-13 18:20] VITALS: BP 144/86; PULSE 92; RESP 14; O2SAT 94
== END 2024-07-13 18:20 | disposition home or self-care (01) ==
LOC: ER 16:28
DX: H54.62 Unqualified visual loss, left eye, normal vision right eye (principal); I13.0 Hypertensive heart and chronic kidney disease with heart failure and stage 1 through stage 4 chronic kidney disease, or unspecified chronic kidney disease; E11.22 Type 2 diabetes mellitus with diabetic chronic kidney disease; N18.9 Chronic kidney disease, unspecified; I50.9 Heart failure, unspecified; I48.91 Unspecified atrial fibrillation; I25.2 Old myocardial infarction; Z85.9 Personal history of malignant neoplasm, unspecified; Z90.49 Acquired absence of other specified parts of digestive tract; Z88.5 Allergy status to narcotic agent; Z79.899 Other long term (current) drug therapy; Z88.8 Allergy status to other drugs, medicaments and biological substances; Z91.013 Allergy to seafood
CPT/HCPCS: 70480; 99284; J7512

== ENCOUNTER 2025-01-18 21:41 | Emergency (ER) | payer MEDICARE ==
[~2025-01-18] VITALS: Ht 167.6 cm; Wt 110.0 kg
--- NOTE | 2025-01-18 21:52 | ED.PDOC ---
HPI Comments 54 year old male presents to the ED with a chief compliant of chest pain onset 2 weeks. Patient has been experiencing chest pain for the past 2 weeks, experienced syncopal episode, was brought to ED by family member. Patient was told by manager spring he needs his cardiac shunt replaced, refused surgery, has not followed up with manager spring. Patient states he knows pain is due to the need of shunt replacement surgery. PMHx CHF, CKF, IA, DM, HTN, seizure, a-fib, cancer. Denies headache, dizziness, nausea, vomiting, diarrhea, abdominal pain, dysuria, hematuria, fever, chills. No other symptoms or modifying factors present at this time. Patient was mildly hypertensive and tachycardic at arrival. Chief Complaint: Chest Pain Time Seen by MD: 21:45 Primary Care Provider: OUT OF STATE Reviewed Notes: Medications, Allergies Allergies: Coded Allergies: Shellfish Allergy (Verified Allergy, Mild, 12/14/21) Codeine (Verified Allergy, Unknown, 02/07/22) Lorazepam (Verified Allergy, Unknown, 04/07/24) Metoclopramide (Verified Allergy, Unknown, 12/08/21) Perphenazine (Verified Allergy, Unknown, 04/07/24) Prochlorperazine (Verified Allergy, Unknown, 12/08/21) Promethazine (Verified Allergy, Unknown, 12/08/21) Home Meds Active Scripts Potassium Chloride (POTASSIUM CHLORIDE CR) 10 Meq Tb, 1 TAB PO DAILY, #30 TAB 5 Refills Prov:JUANA EMANUEL MD 11/08/22 Quetiapine Fumerate (QUETIAPINE FUMARATE) 25 Mg Tab, 50 MG PO BID for 30 Days, #120 TAB 1 Refill Prov:LILIAN REYES MD 02/16/22 Reported Medications Propranolol HCl (Propranolol Hydrochloride) 10 Mg Tab, 10 MG PO BID, TAB 04/07/24 Pregabalin (Lyrica) 200 Mg Cap, 1 CAP PO BID, #60 CAP 04/07/24 Cyclobenzaprine Hcl (Cyclobenzaprine Hcl) 10 Mg Tab, 10 MG PO TID PRN for FOR MUSCLE SPASM, TAB 04/07/24 Metoprolol Succinate (Metoprolol Succinate Er) 50 Mg Tab, 100 MG PO DAILY for 30 Days, MG 04/07/24 Levetiracetam (Keppra) 1,000 Mg Tab, 1 TAB PO BID, #60 TAB 5 Refills 04/07/24 Bupropion Hcl (Bupropion Hcl) 100 Mg Tab, 150 MG PO QAM for 30 Days, MG 04/07/24 Ascorbic Acid (VITAMIN C) 500 Mg Cap, 500 MG PO DAILY, CAP 04/07/24 Amlodipine Besylate (Amlodipine Besylate) 5 Mg Tab, 5 MG PO QAM for 30 Days, MG 04/07/24 Lorazepam (Lorazepam) 1 Mg Tab, 1 MG PO PRN PRN for ANXIETY, TAB 04/07/24 Furosemide (Furosemide) 40 Mg Tab, 40 MG PO DAILY for 30 Days 04/07/24 Topiramate (Topiramate) 100 Mg Tab, 100 MG PO for 30 Days, MG 04/07/24 Memantine Hydrochloride (Memantine HCl) 5 Mg Tab, 5 MG PO BID, TAB 04/07/24 Pantoprazole Sodium (PANTOPRAZOLE SODIUM) 40 Mg Inj, 40 MG PO DAILY, INJ 04/07/24 Trazodone Hcl (Trazodone Hcl) 150 Mg Tab, 1 TAB PO QPM, #30 TAB 1 Refill 04/07/24 Dicyclomine Hcl (Dicyclomine Hcl) 20 Mg Tab, 20 MG PO DAILY 12/15/21 Ropinirole Hydrochloride (Ropinirole Hcl) 1 Mg Tab, 1 MG PO QHSP 12/15/21 Information Source: Patient Mode of Arrival: Ambulatory Severity: Moderate Timing: Weeks Duration: Since onset Prehospital treatment: None Location: Chest (L) Radiation: No Radiation Quality: Sharp, Pressure Onset: At Rest Cardiac Risk Factors: HTN, Diabetes PE Risk Factors: None History of: Similar pain in past, IA Modifying Factors: Nothing Past Medical History PAST MEDICAL HISTORY: AFIB, Cancer, CHF, CKF, DM, HTN, IA, Seizures Surgical History: Appendectomy Surgical History (Other): cardiac shunt Family History Family History: Reviewed,noncontributory to illness Social History Smoker: Non-Smoker Alcohol: Denies ETOH Use Drugs: Denies Drug Use Lives In: Home Constitutional: denies: chills, diaphoresis, fatigue, fever, malaise, sweats, weakness, others EENTM: denies: blurred vision, double vision, ear bleeding, ear discharge, ear drainage, ear pain, ear ringing, eye pain, eye redness, hearing loss, mouth pain, mouth swelling, nasal discharge, nose bleeding, nose congestion, nose pain, photophobia, tearing, throat pain, throat swelling, voice changes, others Respiratory: denies: cough, hemoptysis, orthopnea, SOB at rest, shortness of breath, SOB with excertion, stridor, wheezing, others Cardiovascular: reports: chest pain; denies: dizzy spells, diaphoresis, Dyspnea on exertion, edema, irregular heart beat, left arm pain, lightheadedness, palpitations, PND, syncope, others Gastrointestinal: denies: abdomen distended, abdominal pain, blood streaked bowels, constipated, diarrhea, dysphagia, difficulty swallowing, hematemesis, melena, nausea, poor appetite, poor fluid intake, rectal bleeding, rectal pain, vomiting, others Genitourinary: denies: burning, dysuria, flank pain, frequency, hematuria, incontinence, penile discharge, penile sore, pain, testicle pain, testicle swelling, urgency, others Neurological: denies: dizziness, fainting, headache, left sided numbness, left sided weakness, numbness, paresthesia, pre-existing deficit, right sided numbn ess, right sided weakness, seizure, speech problems, tingling, tremors, weakness, others Musculoskeletal: denies: back pain, gout, joint pain, joint swelling, muscle pain, muscle stiffness, neck pain, others Integumetry: denies: bruises, change in color, change in hair/nails, dryness, laceration, lesions, lumps, rash, wounds, others Allergic/Immunocompromised: denies: Difficulty Healing, Frequent Infections, Hives, Itching, others Hematologic/Lymphatic: denies: anemia, blood clots, easy bleeding, easy bruising, swollen glands, others Endocrine: denies: excessive hunger, excessive sweating, excessive thirst, excessive urination, flushing, intolerance to cold, intolerance to heat, unexplained weight gain, unexplained weight loss, others Psychiatric: denies: anxiety, bipolar disorder, depression, hopeless, panic disorder, schizophrenia, sleepless, suicidal, others All Other Systems: Reviewed and Negative Physical Exam General Appearance: Moderate Distress (Adbz-fk-cvzqkjym distress due to chest pain concerns.), Normal HEENT: Normal ENT Inspection, Pharynx Normal, TMs Normal Neck: Full Range of Motion, Non-Tender, Normal, Normal Inspection Respiratory: Chest Non-Tender, Lungs Clear, No Accessory Muscle Use, No Respiratory Distress, Normal Breath Sounds Cardiovascular: No Edema, No JVD, No Murmur, No Gallop, Normal Peripheral Pulses, Regular Rate/Rhythm Breast Exam: Deferred Gastrointestinal: No Organomegaly, Non Tender, No Pulsatile Mass, Normal Bowel Sounds, Soft Genitalia: Deferred Pelvic: Deferred Rectal: Deferred Extremities: No calf tenderness, Normal capillary refill, Normal inspection, Normal range of motion, Non-tender, No pedal edema Musculoskeletal : Apperance: Normal Neurologic: Alert, No Motor Deficits, Normal Affect, Normal Mood, No Sensory Deficits Cerebellar Function: NOT DONE Reflexes: NOT DONE Skin: Dry, Normal Color, Warm Lymphatic: No Adenopathy Was a procedure done? Was a procedure done?: No CP Differential Dx Differential Diagnosis: A-fib, A-Flutter, Anxiety / Panic Attack, Atrial Dysrhythmia, AV Block 1st Degree, AV Block 2nd Degree, IA, V-Fib, V-Tach Differential Diagnosis: CHF, HTN Essential X-Ray, Labs, Meds, VS Vital Signs Date Time Temp Pulse Resp B/P (MAP) Pulse Ox O2 Delivery O2 Flow Rate FiO2 01/19/25 00:02 91 16 92 Room Air* 0 21 01/19/25 00:01 91 16 148/97 (114) 92 01/18/25 23:44 148/97 01/18/25 21:59 98.7 105 16 143/104 (117) 93 98.7 01/18/25 21:59 143/104 01/18/25 21:50 100 Lab Test 01/19/25 00:00 01/18/25 23:29 01/18/25 22:21 Range/Units Urine Color Colorless Yellow Urine Clarity Clear Clear Urine pH 5.5 5.0-9.0 Urine Specific [place] 1.003 1.001-1.035 Urine Protein Negative Negative Urine Ketones Negative Negative Urine Blood Negative Negative /uL Urine Nitrite Negative Negative Urine Bilirubin Negative Negative Urine Urobilinogen Normal Negative mg/dL Urine Leukocyte Esterase Negative Negative /uL Urine RBC <1 0 - 3 /hpf Urine Microscopic WBC < 1 0-3 /HPF Urine Squamous Epithelial Cells None seen <5 /hpf Urine Bacteria None seen None Seen /hpf Urine Glucose Normal Normal mg/dL Troponin I High Sensitivity 3 L < 3 L </=54 ng/L White Blood Count 10.9 H 4.4-10.8 10^3/uL Red Blood Count 4.68 4.5-5.90 10^6/uL Hemoglobin 14.7 13.5-17.5 g/dL Hematocrit 43.4 41.0-53.0 % Mean Corpuscular Volume 92.8 80.0-100.0 fL Mean Corpuscular Hemoglobin 31.5 28.0-32.0 pg Mean Corpuscular Hemoglobin Concent 34.0 32.0-36.0 g/dL Red Cell Distribution Width 13.5 11.8-14.3 % Platelet Count 255 140-450 10^3/uL Mean Platelet Volume 7.0 6.9-10.8 fL Neutrophils (%) (Auto) 69.4 37.0-80.0 % Lymphocytes (%) (Auto) 21.6 10.0-50.0 % Monocytes (%) (Auto) 6.6 0.0-12.0 % Eosinophils (%) (Auto) 2.0 0.0-7.0 % Basophils (%) (Auto) 0.4 0.0-2.0 % Neutrophils # (Auto) 7.5 1.6-8.6 10 ^3/uL Lymphocytes # (Auto) 2.3 0.4-5.4 10 ^3/uL Monocytes # (Auto) 0.7 0-1.3 10 ^3/uL Eosinophils # (Auto) 0.2 0-0.8 10 ^3/uL Basophils # (Auto) 0 0-0.2 10 ^3/uL Nucleated Red Blood Cells 0.1 % Sodium Level 137 136-145 mmol/L Potassium Level 4.2 3.5-5.1 mmol/L Chloride Level 105 98-107 mmol/L Carbon Dioxide Level 23 20-31 mmol/L Anion Gap 9 5-15 Blood Urea Nitrogen 10 9-23 mg/dL Creatinine 1.25 0.700-1.30 mg/dL Glomerular Filtration Rate Calc 69 >90 mL/min BUN/Creatinine Ratio 8.0 L 10.0-20.0 Serum Glucose 119 H 74-106 mg/dL Calcium Level 9.3 8.7-10.4 mg/dL Total Bilirubin 0.4 0.2-1.0 mg/dL Aspartate Amino Transferase (AST) 23 13-40 U/L Alanine Aminotransferase (ALT) 29 7-40 U/L Alkaline Phosphatase 84 46-116 U/L B-Type Natriuretic Peptide 7.92 0-100 pg/mL Total Protein 7.5 5.7-8.2 g/dL Albumin 4.4 3.2-4.8 g/dL Current Medications Medications (Trade) Dose Ordered Sig/Heather Route Start Time Stop Time Status Last Admin Nitroglycerin (Ntrostat Sublingual) 0.4 mg ONCE ONCE SL 01/18/25 22:00 01/18/25 22:01 DC 01/18/25 21:59 X-Ray, Labs, Meds, VS Comment All studies performed the ED were evaluated by me personally. Serum laboratories were unremarkable for any systemic process including unremarkable cardiac markers. EKG revealed a sinus rhythm with a 88. LAD with a possible left anterior fascicular block. Abnormal R-wave progression was noted with late transition. IL interval 142 and QT interval of 359. Chest x-ray was unremarkable. No consolidation or intrapulmonary issues noted. Patient responded well to medication dispensed. Advised patient that he needs to follow up with his manager spring for treatment and management. Patient is noncompliant with follow up as well as erratic on his multiple medications. Patient will be sent home with a prescription of nitro to be used in emergent situations. Time of 1ST Reevaluation: 00:52 Reevaluation 1ST: Improved Consultation: PCP, Cardiology Patient Education/Counseling: Diagnosis, Treatment, Prognosis Family Education/Counseling: Diagnosis, Treatment, No Family Present Departure 1 Departure Time of Disposition: 00:52 Impression: Primary Impression: Chest pain Additional Impression: Angina pectoris Disposition: HOME / SELF CARE / HOMELESS Condition: Stable Additional Instructions: Advised patient utilize medication as needed for symptomatic relief. Patient needs to follow up with his primary care provider and manager spring for management of his angina concerns as well as other comorbidities. Patient needs to become more compliant with his medication management. e-Prescriptions Nitroglycerin (Nitrostat) 0.4 Mg Sub 0.4 MG SL Q12HP PRN, #15 INJ Prov: ERNESTO ORTIZ PAC 01/19/25 Discharged With: Self, Friend Critical Care Note Critical Care Time?: No Stability Stability form required: No Heart Score Heart Score: Heart Score Response (Comments) Value History Slightly Suspicious 0 EKG Repolarization Disturb 1 Age 45-64 1 Risk Factors 1 or 2 risk factors 1 Troponin Normal limit 0 Total 3 I personally scribed for ERNESTO ORTIZ PAC ([email or web address]) on 01/18/25 at 21:52. Electronically submitted by Susan Alejandra ([email or web address]). ERNESTO ORTIZ PAC January 18, 2025 21:52
[2025-01-18 21:59] VITALS: TEMP 98.7
[2025-01-18] MEDS: NITROGLYCERIN 0.4 MG SL TAB SL ONE (21:59)
[2025-01-18 22:32] LABS: Basophils # (auto) 0 10 ^3/uL (0-0.2); Basophils % (auto) 0.4 % (0.0-2.0); Eosinophils # (auto) 0.2 10 ^3/uL (0-0.8); Hematocrit 43.4 % (41.0-53.0); Hemoglobin 14.7 g/dL (13.5-17.5); Lymphocytes # (auto) 2.3 10 ^3/uL (0.4-5.4); Lymphocytes % (auto) 21.6 % (10.0-50.0); Mean Corpuscular Hemoglobin 31.5 pg (28.0-32.0); Mean Corpuscular Volume 92.8 fL (80.0-100.0); Monocytes # (auto) 0.7 10 ^3/uL (0-1.3); Monocytes % (auto) 6.6 % (0.0-12.0); Neutrophils # (auto) 7.5 10 ^3/uL (1.6-8.6); Neutrophils % (auto) 69.4 % (37.0-80.0); Nucleated Red Blood Cells % 0.1 %; Platelet Count (auto) 255 10^3/uL (140-450); Red Blood Cells 4.68 10^6/uL (4.5-5.90); Red Cell Distribution Width 13.5 % (11.8-14.3); White Blood Cell 10.9 10^3/uL (4.4-10.8)
--- NOTE | 2025-01-18 22:42 | DVH ---
CHEST RADIOGRAPH Indication: Shortness of breath Technique: Single frontal view of the chest was obtained COMPARISON: XY CHEST PORTABLE on DOS: 02/19/24 FINDINGS: Lines and Tubes: Right-sided PEDIATRIC NEUROLOGIST shunt catheter noted. Lungs: Clear Pleura: No effusion. No pneumothorax. Cardiomediastinal contours: Unremarkable IMPRESSION: No abnormality demonstrated.
[2025-01-18 22:57] LABS: Alanine Aminotransferase 29 U/L (7-40); Albumin 4.4 g/dL (3.2-4.8); Alkaline Phosphatase 84 U/L (46-116); Anion Gap 9 (5-15); Aspartate Aminotransferase 23 U/L (13-40); Bilirubin, Total 0.4 mg/dL (0.2-1.0); Blood Urea Nitrogen 10 mg/dL (9-23); Calcium 9.3 mg/dL (8.7-10.4); Carbon Dioxide 23 mmol/L (20-31); Chloride 105 mmol/L (98-107); Potassium 4.2 mmol/L (3.5-5.1); Sodium 137 mmol/L (136-145); Total Protein 7.5 g/dL (5.7-8.2)
[2025-01-18 22:58] LABS: Glucose 119 mg/dL (74-106)
[2025-01-19 00:01] VITALS: BP 148/97
[2025-01-19 00:01] LABS: Urine Bacteria None Seen /hpf (None Seen)
[2025-01-19 00:02] VITALS: PULSE 91; RESP 16; O2SAT 92
[2025-01-19 00:13] LABS: Urine Blood Negative /uL (Negative); Urine Clarity Clear (Clear); Urine Color Colorless (Yellow); Urine Protein, UAD Negative (Negative); Urine Specific Gravity 1.003 (1.001-1.035); Urine Squamous Epithelial Cell None Seen /hpf (<5); Urine Urobilinogen Normal (Negative); Urine pH 5.5 (5.0-9.0)
[2025-01-19 00:46] LABS: Urine WBC < 1 /HPF (0-3)
[2025-01-19] MEDS ORDERED: NITR0.4S29 SL (00:54)
--- NOTE | 2025-01-19 09:51 | ECG ---
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
--- NOTE | 2025-01-19 09:51 | ECG ---
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
== END 2025-01-19 01:30 | disposition home or self-care (01) ==
LOC: ER 21:41
DX: I20.9 Angina pectoris, unspecified (principal); I11.0 Hypertensive heart disease with heart failure; I50.9 Heart failure, unspecified; E11.9 Type 2 diabetes mellitus without complications; I48.91 Unspecified atrial fibrillation; Z79.899 Other long term (current) drug therapy; Z90.49 Acquired absence of other specified parts of digestive tract; Z88.5 Allergy status to narcotic agent
CPT/HCPCS: 36415; 71045; 80053; 81001; 83880; 84484; 85025; 93005

== ENCOUNTER 2025-04-28 22:42 | Emergency (ER) | payer OTHER, MEDICARE ==
[~2025-04-28] VITALS: Ht 167.6 cm; Wt 128.0 kg
[~2025-04-28 22:42] MED LIST changes: +NITR0.4S29 SL
[2025-04-28] MEDS: ALBUTEROL SULF 2.5 MG/0.5ML(0.5%) NEB SOLN NEB ONE (23:51)
[2025-04-29 00:11] LABS: Hematocrit 44.4 % (41.0-53.0); Hemoglobin 15.3 g/dL (13.5-17.5); Mean Corpuscular Hemoglobin 32.1 pg (28.0-32.0); Mean Corpuscular Volume 93.3 fL (80.0-100.0); Nucleated Red Blood Cells % 0.1 %
--- NOTE | 2025-04-29 00:19 | ED.PDOC ---
History of Present Illness HPI Comments 54 y/o morbidly obese M presents with c/c shortness of breath. Significant history for AFib, leukemia - in remission, CHF, CKF, DM, HTN, HI, and seizures. 2x day history of symptoms, with 2x reported incidences of fall. No chest pain, cough, congestion, fever, chills, injuries, or further acute symptoms reported. Chief Complaint: Shortness of Breath Time Seen by MD: 23:30 Primary Care Provider: OUT OF STATE Reviewed Notes: Nurses Notes, Medications, Allergies Allergies: Coded Allergies: Shellfish Allergy (Verified Allergy, Mild, 12/14/21) Codeine (Verified Allergy, Unknown, 02/07/22) Lorazepam (Verified Allergy, Unknown, 04/07/24) Metoclopramide (Verified Allergy, Unknown, 12/08/21) Perphenazine (Verified Allergy, Unknown, 04/07/24) Prochlorperazine (Verified Allergy, Unknown, 12/08/21) Promethazine (Verified Allergy, Unknown, 12/08/21) Home Meds Active Scripts Albuterol Sulfate (Albuterol Sulfate Hfa) 108 Mcg/Act Aer, 108 MCG IN Q6HP PRN, #1 AER Prov:ANDREW PEREA MD 04/29/25 Nitroglycerin (Nitrostat) 0.4 Mg Sub, 0.4 MG SL Q12HP PRN, #15 INJ Prov:ERNESTO ORTIZ PAC 01/19/25 Potassium Chloride (POTASSIUM CHLORIDE CR) 10 Meq Tb, 1 TAB PO DAILY, #30 TAB 5 Refills Prov:JUANA EMANUEL MD 11/08/22 Quetiapine Fumerate (QUETIAPINE FUMARATE) 25 Mg Tab, 50 MG PO BID for 30 Days, #120 TAB 1 Refill Prov:LILIAN REYES MD 02/16/22 Reported Medications Propranolol HCl (Propranolol Hydrochloride) 10 Mg Tab, 10 MG PO BID, TAB 04/07/24 Pregabalin (Lyrica) 200 Mg Cap, 1 CAP PO BID, #60 CAP 04/07/24 Cyclobenzaprine Hcl (Cyclobenzaprine Hcl) 10 Mg Tab, 10 MG PO TID PRN for FOR MUSCLE SPASM, TAB 04/07/24 Metoprolol Succinate (Metoprolol Succinate Er) 50 Mg Tab, 100 MG PO DAILY for 30 Days, MG 04/07/24 Levetiracetam (Keppra) 1,000 Mg Tab, 1 TAB PO BID, #60 TAB 5 Refills 04/07/24 Bupropion Hcl (Bupropion Hcl) 100 Mg Tab, 150 MG PO QAM for 30 Days, MG 04/07/24 Ascorbic Acid (VITAMIN C) 500 Mg Cap, 500 MG PO DAILY, CAP 04/07/24 Amlodipine Besylate (Amlodipine Besylate) 5 Mg Tab, 5 MG PO QAM for 30 Days, MG 04/07/24 Lorazepam (Lorazepam) 1 Mg Tab, 1 MG PO PRN PRN for ANXIETY, TAB 04/07/24 Furosemide (Furosemide) 40 Mg Tab, 40 MG PO DAILY for 30 Days 04/07/24 Topiramate (Topiramate) 100 Mg Tab, 100 MG PO for 30 Days, MG 04/07/24 Memantine Hydrochloride (Memantine HCl) 5 Mg Tab, 5 MG PO BID, TAB 04/07/24 Pantoprazole Sodium (PANTOPRAZOLE SODIUM) 40 Mg Inj, 40 MG PO DAILY, INJ 04/07/24 Trazodone Hcl (Trazodone Hcl) 150 Mg Tab, 1 TAB PO QPM, #30 TAB 1 Refill 04/07/24 Dicyclomine Hcl (Dicyclomine Hcl) 20 Mg Tab, 20 MG PO DAILY 12/15/21 Ropinirole Hydrochloride (Ropinirole Hcl) 1 Mg Tab, 1 MG PO QHSP 12/15/21 Information Source: Patient Mode of Arrival: Ambulatory Severity: Moderate Timing: Hours Duration: Since onset Prehospital treatment: None Past Medical History PAST MEDICAL HISTORY: AFIB, Cancer (leukemia - in remission ), CHF, CKF, Depression, DM (type II ), HTN, HI, Seizures Surgical History: Appendectomy Surgical History (Other): [employer] shunt for hydrocephalus Family History Family History: Reviewed,noncontributory to illness Social History Smoker: Non-Smoker Alcohol: Denies ETOH Use Drugs: Denies Drug Use Lives In: Home All Other Systems: Reviewed and Negative (Comprehensive systems review obtained and negative except for what is stated in the HPI.) Physical Exam General Appearance: No Apparent Distress, Obese HEENT: Normal ENT Inspection, Pharynx Normal, TMs Normal Neck: Full Range of Motion, Non-Tender, Normal, Normal Inspection Respiratory: Chest Non-Tender, No Accessory Muscle Use, No Respiratory Distress, Wheezing (mild scattered wheezing, bilaterally) Cardiovascular: No Edema, No JVD, No Murmur, No Gallop, Normal Peripheral Pulses, Regular Rate/Rhythm Breast Exam: Deferred Gastrointestinal: No Organomegaly, Non Tender, No Pulsatile Mass, Normal Bowel Sounds, Soft Genitalia: Deferred Pelvic: Deferred Rectal: Deferred Extremities: No calf tenderness, Normal capillary refill, Normal inspection, Normal range of motion, Non-tender, No pedal edema Musculoskeletal : Apperance: Normal Neurologic: Alert, 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 Was a procedure done?: No EKG EKG : Pulse Rate (adult): 96 [place]: Normal Cardiac Rhythm: NSR Block: None Hypertrophy: None ST: Normal Differential Dx Considerations may include: HI, PE, ACS, URI, PNA, viral syndrome, among others X-Ray, Labs, Meds, VS Vital Signs Date Time Temp Pulse Resp B/P (MAP) Pulse Ox O2 Delivery O2 Flow Rate FiO2 04/29/25 02:43 98 Room Air* 0 21 04/29/25 02:21 16 95 Room Air 0 04/29/25 02:10 98.4 115 16 158/86 (110) 95 98.4 04/29/25 00:18 96 04/28/25 22:51 96 04/28/25 22:43 98.6 106 30 153/98 98 98.6 Lab Test 04/29/25 00:20 04/28/25 23:32 Range/Units Troponin I High Sensitivity < 3 L < 3 L </=54 ng/L White Blood Count 9.6 4.4-10.8 10^3/uL Red Blood Count 4.76 4.5-5.90 10^6/uL Hemoglobin 15.3 13.5-17.5 g/dL Hematocrit 44.4 41.0-53.0 % Mean Corpuscular Volume 93.3 80.0-100.0 fL Mean Corpuscular Hemoglobin 32.1 H 28.0-32.0 pg Mean Corpuscular Hemoglobin Concent 34.4 32.0-36.0 g/dL Red Cell Distribution Width 13.9 11.8-14.3 % Platelet Count 275 140-450 10^3/uL Mean Platelet Volume 7.4 6.9-10.8 fL Neutrophils (%) (Auto) 66.0 37.0-80.0 % Lymphocytes (%) (Auto) 26.6 10.0-50.0 % Monocytes (%) (Auto) 5.3 0.0-12.0 % Eosinophils (%) (Auto) 1.8 0.0-7.0 % Basophils (%) (Auto) 0.3 0.0-2.0 % Neutrophils # (Auto) 6.3 1.6-8.6 10 ^3/uL Lymphocytes # (Auto) 2.6 0.4-5.4 10 ^3/uL Monocytes # (Auto) 0.5 0-1.3 10 ^3/uL Eosinophils # (Auto) 0.2 0-0.8 10 ^3/uL Basophils # (Auto) 0 0-0.2 10 ^3/uL Nucleated Red Blood Cells 0.1 % Sodium Level 139 136-145 mmol/L Potassium Level 3.8 3.5-5.1 mmol/L Chloride Level 106 98-107 mmol/L Carbon Dioxide Level 24 20-31 mmol/L Anion Gap 9 5-15 Blood Urea Nitrogen 15 9-23 mg/dL Creatinine 1.26 0.700-1.30 mg/dL Glomerular Filtration Rate Calc 68 >90 mL/min BUN/Creatinine Ratio 11.9 10.0-20.0 Serum Glucose 186 H 74-106 mg/dL Calcium Level 9.1 8.7-10.4 mg/dL Total Bilirubin 0.6 0.2-1.0 mg/dL Aspartate Amino Transferase (AST) 23 13-40 U/L Alanine Aminotransferase (ALT) 32 7-40 U/L Alkaline Phosphatase 90 46-116 U/L B-Type Natriuretic Peptide 5.35 0-100 pg/mL Total Protein 7.5 5.7-8.2 g/dL Albumin 4.4 3.2-4.8 g/dL Current Medications Medications (Trade) Dose Ordered Sig/Heather Route Start Time Stop Time Status Last Admin Albuterol (Ventolin Medneb) 5 mg ONCE ONCE NEB 04/28/25 23:30 04/28/25 23:31 DC 04/28/25 23:51 Prednisone 40 mg ONCE ONCE PO 04/28/25 23:30 04/28/25 23:31 DC 04/29/25 02:30 Time of 1ST Reevaluation: 00:00 Reevaluation 1ST: Unchanged Patient Education/Counseling: Diagnosis, Treatment Family Education/Counseling: No Family Present SEPSIS Sepsis Screen Date sepsis recognized/suspect: Apr 28, 2025 Time Sepsis recognized/suspect: 2244 Recent Procedure: No On Antibiotic Therapy: No Respiratory Rate >20: Yes Heart Rate >90: Yes Temp<36 C (96.8 F) or >38.3 C: No SBP <90 or MAP <65 mmHG: No New Acute Mental Status Change: No Is the patient on CPAP, BIPAP,: No Physician Orders Chest Xray 1 View (04/28/25 23:20) Vital Signs Date Time Temp Pulse Resp B/P (MAP) Pulse Ox O2 Delivery O2 Flow Rate FiO2 04/29/25 02:43 98 Room Air* 0 21 04/29/25 02:21 16 95 Room Air 0 04/29/25 02:10 98.4 115 16 158/86 (110) 95 98.4 04/29/25 00:18 96 04/28/25 22:51 96 04/28/25 22:43 98.6 106 30 153/98 98 98.6 Laboratory Tests Test 04/28/25 23:32 White Blood Count 9.6 10^3/uL (4.4-10.8) Medications Medications Dose Ordered Sig/Heather Route Start Time Stop Time Status Last Admin Dose Admin Albuterol 5 mg ONCE ONCE NEB 04/28/25 23:30 04/28/25 23:31 DC 04/28/25 23:51 Prednisone 40 mg ONCE ONCE PO 04/28/25 23:30 04/28/25 23:31 DC 04/29/25 02:30 Departure 1 Departure Time of Disposition: 02:00 Impression: Primary Impression: Acute dyspnea Disposition: 01 HOME / SELF CARE / HOMELESS Condition: Stable e-Prescriptions Albuterol Sulfate (Albuterol Sulfate Hfa) 108 Mcg/Act Aer 108 MCG IN Q6HP PRN, #1 AER Prov: ANDREW PEREA MD 04/29/25 Discharged With: Self Critical Care Note Critical Care Time?: No Stability Stability form required: No Heart Score Heart Score: Heart Score Response (Comments) Value History Moderate Suspicious 1 EKG Normal 0 Age 45-64 1 Risk Factors >3 or Hx ASHD 2 Troponin Normal limit 0 Total 4 I personally scribed for ANDREW PEREA MD ([email or web address]) on 04/29/25 at 00:18. Electronically submitted by Timmy Quiroz [email or web address]). ANDREW PEREA MD Apr 29, 2025 00:18
[2025-04-29 00:20] LABS: Alanine Aminotransferase 32 U/L (7-40); Albumin 4.4 g/dL (3.2-4.8); Alkaline Phosphatase 90 U/L (46-116); Anion Gap 9 (5-15); BUN/Creatinine Ratio 11.9 (10.0-20.0); Bilirubin, Total 0.6 mg/dL (0.2-1.0); Blood Urea Nitrogen 15 mg/dL (9-23); Calcium 9.1 mg/dL (8.7-10.4); Carbon Dioxide 24 mmol/L (20-31); Chloride 106 mmol/L (98-107); Potassium 3.8 mmol/L (3.5-5.1); Sodium 139 mmol/L (136-145); Total Protein 7.5 g/dL (5.7-8.2)
[2025-04-29 00:24] LABS: Glucose 186 mg/dL (74-106)
[2025-04-29] MEDS ORDERED: ALBU108A5 IN (00:51)
--- NOTE | 2025-04-29 00:57 | ECG ---
[facility] Test Date: 2025-04-28 Test Time: 22:51:10 Pat Name: MINERVA ARANGO Department: ED Room: Gender: M Clinical Trials Data Coordinator: : 1970 Requested By: ANDREW PEREA Order Number: [id number] Reading MD: Bryan Snowden Measurements Intervals [place] Rate: 96 P: 42 [place]: 144 QRS: -82 QRSD: 82 T: 75 QT: 354 QTc: 448 Interpretive Statements Sinus rhythm LAD, consider left anterior fascicular block Low voltage, precordial leads Consider anterior infarct Electronically Signed On 04-29-2025 22:59:00 PDT by Bryan Snowden Please click the below link to view image of tracing.
--- NOTE | 2025-04-29 01:36 | DVH ---
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 Lungs: No focal consolidation. Pleura: No effusion. No pneumothorax. Cardiomediastinal contours: Unremarkable Bones: No acute osseous abnormality. IMPRESSION: 1. No acute cardiopulmonary disease.
[2025-04-29 02:10] VITALS: BP 158/86; PULSE 115; TEMP 98.4
[2025-04-29 02:21] VITALS: RESP 16
[2025-04-29] MEDS: predniSONE 20 MG TAB PO ONE (02:30)
[2025-04-29 02:43] VITALS: O2SAT 98
--- NOTE | 2025-05-01 14:06 | ECG ---
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
== END 2025-04-29 02:46 | disposition home or self-care (01) ==
LOC: ER 22:42
DX: R06.00 Dyspnea, unspecified (principal); E11.9 Type 2 diabetes mellitus without complications; Z88.5 Allergy status to narcotic agent; Z79.899 Other long term (current) drug therapy
CPT/HCPCS: 36415; 71045; 80053; 83880; 84484; 85025; 93005; 94640; 99285; J7512